=== PATIENT | female | born 1970 | race Caucasian/White ===

== ENCOUNTER 2025-02-15 16:24 | Inpatient (IN) | payer MEDICAID ==
[~2025-02-15] VITALS: Ht 167.6 cm; Wt 96.7 kg
--- NOTE | 2025-02-15 17:13 | ED.PDOC ---
History of Present Illness(SKN HPI Comments 54-year-old female with a history of hypertension, breast cancer in remission status post double mastectomy and bilateral breast augmentation brought in by family complaining of right breast pain. Patient states she had complications after both implants were inserted, so had multiple corrective surgeries. The left implant was removed, however the right implant is in place. Patient states she has had worsening pain, tenderness and asymmetry of the right breast over the past month. She was seen by her breast surgeon in [place] 2 days ago, who advised her to go to the hospital for a breast MRI to evaluate for implant rupture. Patient also notes she has had pain and swelling radiating to her right axilla, and the left breast area also seems to be developing a fluid collection with associated nipple distortion, however left side is not painful. Denies any fever, breast discoloration or discharge. At triage, patient's blood pressure was noted to be 201/118 with heart rate 104. Patient denies headache, vision changes, focal weakness, chest pain, shortness of breath or lower extremity edema. Chief Complaint: Breast pain Time Seen by MD: 17:00 History of Present Illness: Nurses Notes, Medications, Allergies Allergies: Coded Allergies: NO KNOWN ALLERGIES (Unverified , 02/15/25) Information Source: Patient Mode of Arrival: Ambulatory Severity: Moderate Timing: Months Duration: Since onset Prehospital treatment: None Location: Chest Mechanism: Spontaneous Onset Object: Other (implant) Condition of Object: None Retained Foreign Body: No Wound Type: Unknown Immunization Status of Animal: NA Tetanus: Unknown Associated Signs and Symptoms: Swelling, Pain Past Medical History PAST MEDICAL HISTORY: Cancer (Breast cancer in remission), HTN Surgical History: Hernia Repair Surgical History (Other): double mastectomy, bilateral breast augmentation, left breast implant removal, multiple bilateral breast corrective surgeries OUTSIDE INSTALLER APPRENTICE History: Denies all OUTSIDE INSTALLER APPRENTICE Hx Family History Family History: Reviewed,noncontributory to illness Social History Smoker: Non-Smoker Alcohol: Denies ETOH Use Drugs: Marijuana Lives In: Home Constitutional: denies: chills, diaphoresis, fatigue, fever, malaise, sweats, weakness, others EENTM: denies: blurred vision, double vision, ear bleeding, ear discharge, ear drainage, ear pain, ear ringing, eye pain, eye redness, hearing loss, mouth pain, mouth swelling, nasal discharge, nose bleeding, nose congestion, nose pain, photophobia, tearing, throat pain, throat swelling, voice changes, others Respiratory: denies: cough, hemoptysis, orthopnea, SOB at rest, shortness of breath, SOB with excertion, stridor, wheezing, others Cardiovascular: denies: chest pain, dizzy spells, diaphoresis, Dyspnea on e xertion, edema, irregular heart beat, left arm pain, lightheadedness, palpitations, PND, syncope, others Gastrointestinal: denies: abdomen distended, abdominal pain, blood streaked bowels, constipated, diarrhea, dysphagia, difficulty swallowing, hematemesis, melena, nausea, poor appetite, poor fluid intake, rectal bleeding, rectal pain, vomiting, others Genitourinary: denies: abnormal vagina bleeding, burning, dyspareunia, dysuria, flank pain, frequency, hematuria, incontinence, pain, , vagina discharge, urgency, others Neurological: denies: dizziness, fainting, headache, left sided numbness, left sided weakness, numbness, paresthesia, pre-existing deficit, right sided numbness, right sided weakness, seizure, speech problems, tingling, tremors, weakness, others Musculoskeletal: denies: back pain, gout, joint pain, joint swelling, muscle pain, muscle stiffness, neck pain, others Integumetry: reports: others (right breast pain/right breast swelling); denies: bruises, change in color, change in hair/nails, dryness, laceration, lesions, lumps, rash, wounds Allergic/Immunocompromised: denies: Difficulty Healing, Frequent Infections, Hives, Itching, others Hematologic/Lymphatic: denies: anemia, blood clots, easy bleeding, easy bruising, swollen glands, others Endocrine: denies: excessive hunger, excessive sweating, excessive thirst, excessive urination, flushing, intolerance to cold, intolerance to heat, unexplained weight gain, unexplained weight loss, others Psychiatric: denies: anxiety, bipolar disorder, depression, hopeless, panic disorder, schizophrenia, sleepless, suicidal, others All Other Systems: Reviewed and Negative Physical Exam General Appearance: Mild Distress HEENT: Other (Pupils and face symmetric. Moist mucous membranes.) Neck: Full Range of Motion, Normal Inspection Respiratory: Lungs Clear, No Accessory Muscle Use, No Respiratory Distress, Normal Breath Sounds Cardiovascular: No Edema, No JVD, Regular Rate/Rhythm Breast Exam: Other (Right breast diffuse soft tissue tenderness and asymmetry with palpable irregularity of the implant. Right axillary soft tissue swelling and tenderness. Left breast mastectomy with residual nontender soft tissue inferior to the mastectomy scar, and left nipple deformity without tenderness) Gastrointestinal: Non Tender, Soft Genitalia: Deferred Pelvic: Deferred Rectal: Deferred Extremities: Normal inspection, Normal range of motion, Non-tender, No pedal e eulogio Neurologic: Alert (Oriented x4), Other (Ambulatory. Appears anxious.) Cerebellar Function: NOT DONE Reflexes: NOT DONE Skin: Dry, Normal Color, Warm Lymphatic: NOT DONE Was a procedure done? Was a procedure done?: No Differential Diagnosis (INTG) Differential Diagnosis: Cellulitis, Hematoma, Other (Capsular contracture, implant rupture, among others) Differential Diagnosis: Abscess Abscess: Bacteremia X-Ray, Labs, Meds, VS Vital Signs Date Time Temp Pulse Resp B/P (MAP) Pulse Ox O2 Delivery O2 Flow Rate FiO2 02/15/25 20:06 97 20 189/109 (135) 96 02/15/25 19:33 98.1 105 18 201/118 (145) 97 98.1 02/15/25 17:44 209/107 02/15/25 16:25 98.2 104 18 197/107 (137) 98 98.2 Lab Test 02/15/25 18:14 02/15/25 16:56 Range/Units White Blood Count 8.0 4.4-10.8 10^3/uL Red Blood Count 4.78 4.0-5.20 10^6/uL Hemoglobin 14.5 12.2-16.2 g/dL Hematocrit 43.2 36.0-46.0 % Mean Corpuscular Volume 90.3 80.0-100.0 fL Mean Corpuscular Hemoglobin 30.3 28.0-32.0 pg Mean Corpuscular Hemoglobin Concent 33.6 32.0-36.0 g/dL Red Cell Distribution Width 13.1 11.8-14.3 % Platelet Count 438 140-450 10^3/uL Mean Platelet Volume 7.3 6.9-10.8 fL Neutrophils (%) (Auto) 69.6 37.0-80.0 % Lymphocytes (%) (Auto) 22.4 10.0-50.0 % Monocytes (%) (Auto) 5.6 0.0-12.0 % Eosinophils (%) (Auto) 1.5 0.0-7.0 % Basophils (%) (Auto) 0.9 0.0-2.0 % Neutrophils # (Auto) 5.6 1.6-8.6 10 ^3/uL Lymphocytes # (Auto) 1.8 0.4-5.4 10 ^3/uL Monocytes # (Auto) 0.5 0-1.3 10 ^3/uL Eosinophils # (Auto) 0.1 0-0.8 10 ^3/uL Basophils # (Auto) 0.1 0-0.2 10 ^3/uL Nucleated Red Blood Cells 0.1 % Sodium Level 142 136-145 mmol/L Potassium Level 4.3 3.5-5.1 mmol/L Chloride Level 110 H 98-107 mmol/L Carbon Dioxide Level 21 20-31 mmol/L Anion Gap 11 5-15 Blood Urea Nitrogen 15 9-23 mg/dL Creatinine 0.78 0.550-1.02 mg/dL Glomerular Filtration Rate Calc 90 >90 mL/min BUN/Creatinine Ratio 19.2 10.0-20.0 Serum Glucose 101 74-106 mg/dL Lactic Acid Level 1.0 0.4-2.0 mmol/L Calcium Level 11.1 H 8.7-10.4 mg/dL Urine Color Yellow Yellow Urine Clarity Turbid H Clear Urine pH 5.5 5.0-9.0 Urine Specific [place] 1.026 1.001-1.035 Urine Protein Negative Negative Urine Ketones Negative Negative Urine Blood Trace H Negative /uL Urine Nitrite Negative Negative Urine Bilirubin Negative Negative Urine Urobilinogen Normal Negative mg/dL Urine Leukocyte Esterase Negative Negative /uL Urine RBC 2 0 - 4 /hpf Urine Microscopic WBC 1 0-5 /HPF Urine Squamous Epithelial Cells Mod <5 /hpf Urine Bacteria Few H None Seen /hpf Urine Mucus Few None Seen Urine Glucose Normal Normal mg/dL Urine Test Negative Negative Current Medications Medications (Trade) Dose Ordered Sig/Johanny Route Start Time Stop Time Status Last Admin Hydralazine HCl (Apresoline Injection) 10 mg ONCE ONCE IV 02/15/25 17:30 02/15/25 17:31 DC 02/15/25 17:44 PROCEDURE(s): RBRST - R BREAST ULTRASOUND REASON: R breast swelling/ba ORDER NUMBER(s): [id number], ACCESSION NUMBER(s): [id number] US OF THE RIGHT BREAST INDICATION: R breast swelling/ba TECHNIQUE: All 4 quadrants, subareolar region and axillary region of the RIGHT breast were evaluated with ultrasound COMPARISON: None FINDINGS: Right breast implant is present. No solid or suspicious masses. No areas of architectural distortion. No malignant adenopathy. No dominant cysts are present. IMPRESSION: There is no sonographic evidence for malignancy. Right breast implant is present. No definite signs of implant rupture. Recommend further evaluation with bilateral diagnostic breast mammography and breast MRI to assess for integrity of implant. ACR Bi Rads Category:Category 0-"INCOMPLETE" (Needs Additional Imaging Evaluation)) X-Ray, Labs, Meds, VS Comment 54-year-old female with a history of hypertension and breast cancer status post bilateral mastectomy, reconstruction and multiple corrective surgeries complaining of right breast pain and found to be hypertensive Vitals remarkable for BP 201/118, heart rate 105 Exam remarkable for right breast diffuse soft tissue tenderness and asymmetry with palpable irregularity of the implant. Right axillary soft tissue swelling and tenderness. Left breast mastectomy with residual nontender soft tissue inferior to the mastectomy scar, and left nipple deformity without tenderness Rhythm strip independently interpreted by me: Sinus tach, rate 105, no ectopy. Right breast ultrasound IMPRESSION: There is no sonographic evidence for malignancy. Right breast implant is present. No definite signs of implant rupture. Recommend further evaluation with bilateral diagnostic breast mammography and breast MRI to assess for integrity of implant. ACR Bi Rads Category:Category 0-"INCOMPLETE" (Needs Additional Imaging Evaluat ion)) Chest x-ray one view: Pending CBC, basic metabolic panel and lactate unremarkable Patient treated with the following in the ED: Hydralazine 10 mg IV, labetalol 10 mg IV, Ativan 1 mg IV On re-evaluation after medications, patient's blood pressure was 189/109. Plan is to admit the patient for blood pressure control and breast MRI. Time of 1ST Reevaluation: 17:30 Reevaluation 1ST: Unchanged Patient Education/Counseling: Diagnosis, Treatment Family Education/Counseling: No Family Present SEPSIS Sepsis Screen Physician Orders Blood Culture (02/15/25 17:18) R Breast Ultrasound (02/15/25 17:18) Vital Signs Date Time Temp Pulse Resp B/P (MAP) Pulse Ox O2 Delivery O2 Flow Rate FiO2 02/15/25 20:06 97 20 189/109 (135) 96 02/15/25 19:33 98.1 105 18 201/118 (145) 97 98.1 02/15/25 17:44 209/107 02/15/25 16:25 98.2 104 18 197/107 (137) 98 98.2 Laboratory Tests Test 02/15/25 18:14 Lactic Acid Level 1.0 mmol/L (0.4-2.0) White Blood Count 8.0 10^3/uL (4.4-10.8) Medications Medications Dose Ordered Sig/Johanny Route Start Time Stop Time Status Last Admin Dose Admin Hydralazine HCl 10 mg ONCE ONCE IV 02/15/25 17:30 02/15/25 17:31 DC 02/15/25 17:44 Departure 1 Departure Time of Disposition: 20:09 Impression: Primary Impression: Complication of breast implant Additional Impression: Hypertensive urgency Disposition: 09 ADMITTED INPATIENT Admit to: Tele Condition: Guarded Critical Care Note Critical Care Time?: Yes (35 min-critical care time only) Critical care comment: Critical care time including multiple bedside re-evaluations, review of lab and imaging studies, and discussion of the case with the admitting provider. Patien t is high risk for hemodynamic decompensation. Stability Stability form required: No Heart Score Heart Score: Heart Score Response (Comments) Value History N/A 0 EKG N/A 0 Age N/A 0 Risk Factors N/A 0 Troponin N/A 0 Total 0 I personally scribed for DYLAN AMIN MD ([email or web address]) on 02/15/25 at 17:13. Electronically submitted by Mirta Aranda ([email or web address]). DYLAN AMIN MD Feb 15, 2025 17:13
[2025-02-15] MEDS: hydrALAZINE HCL 20 MG/ML VL IV ONE (17:44)
[2025-02-15 17:51] LABS: Urine Protein, UAD Negative (Negative)
[2025-02-15 18:43] LABS: Hematocrit 43.2 % (36.0-46.0); Hemoglobin 14.5 g/dL (12.2-16.2); Mean Corpuscular Hemoglobin 30.3 pg (28.0-32.0); Mean Corpuscular Volume 90.3 fL (80.0-100.0); Nucleated Red Blood Cells % 0.1 %; Potassium 4.3 mmol/L (3.5-5.1); Sodium 142 mmol/L (136-145)
[2025-02-15 18:44] LABS: Anion Gap 11 (5-15); Carbon Dioxide 21 mmol/L (20-31)
[2025-02-15 18:49] LABS: BUN/Creatinine Ratio 19.2 (10.0-20.0); Blood Urea Nitrogen 15 mg/dL (9-23); Glucose 101 mg/dL (74-106)
[2025-02-15 18:52] LABS: Calcium 11.1 mg/dL (8.7-10.4); Chloride 110 mmol/L (98-107)
--- NOTE | 2025-02-15 19:30 | DVH ---
US OF THE RIGHT BREAST INDICATION: R breast swelling/ba TECHNIQUE: All 4 quadrants, subareolar region and axillary region of the RIGHT breast were evaluated with ultrasound COMPARISON: None FINDINGS: Right breast implant is present. No solid or suspicious masses. No areas of architectural distortion. No malignant adenopathy. No dominant cysts are present. IMPRESSION: There is no sonographic evidence for malignancy. Right breast implant is present. No definite signs of implant rupture. Recommend further evaluation w ith bilateral diagnostic breast mammography and breast MRI to assess for integrity of implant. ACR Bi Rads Category:Category 0-"INCOMPLETE" (Needs Additional Imaging Evaluation))
[2025-02-15 20:13] VITALS: O2SAT 99
[2025-02-15] MEDS: LORazepam 2MG/ML-1ML VIAL IV ONE (20:18)
[2025-02-15] MEDS: LABETALOL HCL 20 MG/4 ML VL IV ONE (20:20)
--- NOTE | 2025-02-15 21:18 | DVH ---
CHEST RADIOGRAPH Indication: Hypertension Technique: Single frontal view of the chest was obtained Comparison: None FINDINGS: Lines and Tubes: None Lungs: No focal consolidation. Increased soft tissue density over the right chest. Most likely from a breast implant correlate with clinical findings. Pleura: No effusion. No pneumothorax. Cardiomediastinal contours: Unremarkable Bones: No acute osseous abnormality. IMPRESSION: 1. No acute cardiopulmonary disease.
[2025-02-15] MEDS ORDERED: hydrALAZINE HCL 20 MG/ML VL IV PRN (23:00)
[2025-02-15] MEDS ORDERED: DOCUSATE SOD 100 MG CAP PO PRN (23:00)
[2025-02-15] MEDS ORDERED: ONDANSETRON HCL 4 MG/2 ML VIAL IV PRN (23:00)
--- NOTE | 2025-02-15 23:50 | DVHHP2 ---
History of Present Illness Reason for Visit: Hypertensive urgency History of Present Illness The patient is a 54-year-old female with past medical history of breast cancer and hypertension who presented to [facility] ED with complaint of right breast pain. Patient states she had complications after both implants were inserted, so had multiple corrective surgeries. The left implant was removed, however the right implant is in place. Patient reports she has had worsening pain, swelling radiating to her right axilla, and the left breast area also seems to be developing fluid collection with associated nipple distortion, tenderness and asymmetry of the right breast over the past month. She was seen by her breast surgeon in [place] 2 days ago, who advised her to go to the hospital for a breast MRI to evaluate for implant rupture. Patient was seen and evaluated in the ED, laboratory data shows WBC 8.0, platelets 438, sodium 142, potassium 4.3, BUN 15, creatinine 0.78, glucose 101, calcium 11.1, lactic acid 1.0, blood pressure 209/107 trending down to 146/72, heart rate 88, temperature 98.1 F, O2 saturation 99% on air. Breast ultrasound revealing right breast implant in place, no sonographic evidence of malignancy. Please see medication orders section in the computer. On my assessment, patient denied chest pain, no headache, no dizziness, no diaphoresis, no shortness of breath, nausea, vomiting, no fever, no chills. Patient was admitted for further evaluation and medical management. Past Medical History Cancer (Breast cancer in remission), HTN Past Surgical History Hernia Repair, Double mastectomy, bilateral breast augmentation, left breast implant removal, multiple bilateral breast corrective surgeries Family History Reviewed, noncontributory to the management of this case. Past Social History The patient lives at home, denies smoking or alcohol use, uses marijuana. Review of Systems Constitutional: No: Fever, Chills, Sweats, Weakness, Malaise, Other Eyes: No: Pain, Vision change, Conjunctivae inflammation, Eyelid inflammation, Other, Redness ENT: No: Ear pain, Ear discharge, Nose pain, Nose discharge, Nose congestion, M outh pain, Mouth swelling, Throat pain, Throat swelling, Other Respiratory: No: Cough, Dry, Shortness of breath, SOB with excertion, Wheezing, Hemoptysis, Pleuritic Pain, Sputum, Wheezing, Other Cardiovascular: No: Chest Pain, Palpitations, Orthopnea, Paroxysmal Noc. Dyspnea, Edema, Lt Headedness, Other Gastrointestinal: No: Nausea, Vomiting, Abdominal Pain, Diarrhea, Constipation, Melena, Hematochezia, Other Genitourinary: No Dysuria, No Frequency, No Incontinence, No Hematuria, No Retention, No Other Musculoskeletal: other (right breast pain/right breast swelling); No: neck pain, shoulder pain, arm pain, back pain, hand pain, leg pain, foot pain Skin: No: Rash, Lesions, Jaundice, Bruising, Other Neurological: No: Weakness, Numbness, Incoordination, Change in speech, Confusion, Seizures, Other Allergies: Coded Allergies: NO KNOWN ALLERGIES (Unverified , 02/15/25) Medications Current Medications Medications Dose Ordered Sig/Johanny Route Start Time Stop Time Status Last Admin Dose Admin Hydralazine HCl 10 mg Q6HP PRN IV 02/15/25 23:00 Lorazepam 0.5 mg Q8HP PRN IV 02/15/25 23:00 Ceftriaxone Sodium 50 ml @ 100 mls/hr DAILY@09 IV 02/16/25 23:00 Metoprolol Tartrate 50 mg BID PO 02/16/25 10:00 Sodium Chloride 10 ml Q8HR IV 02/16/25 06:00 Acetaminophen/ Hydrocodone Bitart 1 tab Q4HP PRN PO 02/15/25 23:00 Ondansetron HCl 4 mg Q4HP PRN IV 02/15/25 23:00 Docusate Sodium 100 mg BIDPRN PRN PO 02/15/25 23:00 Acetaminophen 650 mg Q6HP PRN PO 02/15/25 23:00 Exam Vital Signs Vital Signs Date Time Temp Pulse Resp B/P (MAP) Pulse Ox O2 Delivery O2 Flow Rate FiO2 02/15/25 22:53 98.2 94 18 148/109 (122) 97 98.2 02/15/25 20:13 Room Air* 0 21 General Appearance: Alert, Oriented X3, Cooperative, No acute distress HEENT: Atraumatic, PERRLA, EOMI, Mucous membr. moist/pink Respiratory: Normal air movement Cardiovascular: Regular rate, Normal S1, Normal S2, No murmurs Abdominal: Normal bowel sounds, Soft, No tenderness, No hepatospenomegaly, No masses Extremities: No clubbing, No cyanosis, No edema, Normal pulses, No tenderness/swelling Skin: No rashes, No significant lesion Neuro: Normal gait, Normal speech, Strength at 5/5 X4 ext, Normal tone, Sensation intact, Cranial nerves 3-12 NL, Reflexes 2+ Psych/Mental Status: Mental status NL, Mood NL Labs/Xrays Labs Test 02/15/25 18:14 02/15/25 16:56 Range/Units White Blood Count 8.0 4.4-10.8 10^3/uL Red Blood Count 4.78 4.0-5.20 10^6/uL Hemoglobin 14.5 12.2-16.2 g/dL Hematocrit 43.2 36.0-46.0 % Mean Corpuscular Volume 90.3 80.0-100.0 fL Mean Corpuscular Hemoglobin 30.3 28.0-32.0 pg Mean Corpuscular Hemoglobin Concent 33.6 32.0-36.0 g/dL Red Cell Distribution Width 13.1 11.8-14.3 % Platelet Count 438 140-450 10^3/uL Mean Platelet Volume 7.3 6.9-10.8 fL Neutrophils (%) (Auto) 69.6 37.0-80.0 % Lymphocytes (%) (Auto) 22.4 10.0-50.0 % Monocytes (%) (Auto) 5.6 0.0-12.0 % Eosinophils (%) (Auto) 1.5 0.0-7.0 % Basophils (%) (Auto) 0.9 0.0-2.0 % Neutrophils # (Auto) 5.6 1.6-8.6 10 ^3/uL Lymphocytes # (Auto) 1.8 0.4-5.4 10 ^3/uL Monocytes # (Auto) 0.5 0-1.3 10 ^3/uL Eosinophils # (Auto) 0.1 0-0.8 10 ^3/uL Basophils # (Auto) 0.1 0-0.2 10 ^3/uL Nucleated Red Blood Cells 0.1 % Sodium Level 142 136-145 mmol/L Potassium Level 4.3 3.5-5.1 mmol/L Chloride Level 110 H 98-107 mmol/L Carbon Dioxide Level 21 20-31 mmol/L Anion Gap 11 5-15 Blood Urea Nitrogen 15 9-23 mg/dL Creatinine 0.78 0.550-1.02 mg/dL Glomerular Filtration Rate Calc 90 >90 mL/min BUN/Creatinine Ratio 19.2 10.0-20.0 Serum Glucose 101 74-106 mg/dL Lactic Acid Level 1.0 0.4-2.0 mmol/L Calcium Level 11.1 H 8.7-10.4 mg/dL Urine Color Yellow Yellow Urine Clarity Turbid H Clear Urine pH 5.5 5.0-9.0 Urine Specific [place] 1.026 1.001-1.035 Urine Protein Negative Negative Urine Ketones Negative Negative Urine Blood Trace H Negative /uL Urine Nitrite Negative Negative Urine Bilirubin Negative Negative Urine Urobilinogen Normal Negative mg/dL Urine Leukocyte Esterase Negative Negative /uL Urine RBC 2 0 - 4 /hpf Urine Microscopic WBC 1 0-5 /HPF Urine Squamous Epithelial Cells Mod <5 /hpf Urine Bacteria Few H None Seen /hpf Urine Mucus Few None Seen Urine Glucose Normal Normal mg/dL Urine Test Negative Negative PATIENT: LATOYA CHANEY ACCT: [id number] UNIT: [id number] : 1970 LOC: ER ROOM / BED: / AGE / SEX: 54 / F ADM STATUS: REG ER SERVICE [id number] ORDERING PHYSICIAN: DYLAN AMIN MD PROCEDURE(s): RBRST - R BREAST ULTRASOUND REASON: R breast swelling/ba ORDER NUMBER(s): [id number], ACCESSION NUMBER(s): [id number] US OF THE RIGHT BREAST INDICATION: R breast swelling/ba TECHNIQUE: All 4 quadrants, subareolar region and axillary region of the RIGHT breast were evaluated with ultrasound COMPARISON: None FINDINGS: Right breast implant is present. No solid or suspicious masses. No areas of architectural distortion. No malignant adenopathy. No dominant cysts are present. IMPRESSION: There is no sonographic evidence for malignancy. Right breast implant is present. No definite signs of implant rupture. Recommend further evaluation with bilateral diagnostic breast mammography and breast MRI to assess for integrity of implant. ACR Bi Rads Category:Category 0-"INCOMPLETE" (Needs Additional Imaging Evaluation)) ORDERING PHYSICIAN: DYLAN AMIN MD PROCEDURE(s): CXR1 - CHEST XRAY 1 VIEW REASON: Hypertension ORDER NUMBER(s): [id number], ACCESSION NUMBER(s): [id number] CHEST RADIOGRAPH Indication: Hypertension Technique: Single frontal view of the chest was obtained Comparison: None FINDINGS: Lines and Tubes: None Lungs: No focal consolidation. Increased soft tissue density over the right chest. Most likely from a breast implant correlate with clinical findings. Pleura: No effusion. No pneumothorax. Cardiomediastinal contours: Unremarkable Bones: No acute osseous abnormality. IMPRESSION: 1. No acute cardiopulmonary disease. SEPSIS Sepsis Screen Time Sepsis recognized/suspect: 2011 Recent Procedure: No On Antibiotic Therapy: No Respiratory Rate >20: No Heart Rate >90: Yes (97bpm) Temp<36 C (96.8 F) or >38.3 C: No SBP <90 or MAP <65 mmHG: No New Acute Mental Status Change: No Is the patient on CPAP, BIPAP,: No Physician Orders Blood Culture (02/15/25 17:18) R Breast Ultrasound (02/15/25 17:18) Electrocardigram (02/15/25 20:22) Chest Xray 1 View (02/15/25 20:25) Hydralazine Injection (Apresoline Inject (02/15/25 23:00) Lorazepam 2mg/Ml Inj (Ativan Inj) (02/15/25 23:00) Ceftriaxone 1gm/50ml D5w (Rocephin) (02/16/25 23:00) Metoprolol Tartrate Tablet (Lopressor Ta (02/16/25 10:00) Allergies (02/15/25 22:50) Code Status (02/15/25 22:50) Sodium Chloride Lock (Saline Lock Ns) (02/16/25 06:00) Oxygen Per Hour (02/15/25 22:50) Hydrocodone-Acet 5/325mg Tab ([place] 5/32 (02/15/25 23:00) Ondansetron Hcl (Zofran) (02/15/25 23:00) Docusate Sodium Capsule (Colace Capsule) (02/15/25 23:00) Complete Blood Count (02/16/25 04:00) Comprehensive Metabolic Panel (02/16/25 04:00) Cardiac Diet-2gna,Lofat,Lochol (02/16/25 Breakfast) Condition: Serious (02/15/25 22:50) Acetaminophen Tablet (Tylenol Tablet) (02/15/25 23:00) Bedrest With Bathroom Privileg (02/15/25 22:50) Sequential Compression Device (02/15/25 ) Vital Signs Date Time Temp Pulse Resp B/P (MAP) Pulse Ox O2 Delivery O2 Flow Rate FiO2 02/15/25 22:53 98.2 94 18 148/109 (122) 97 98.2 02/15/25 21:09 88 181/104 (129) 02/15/25 21:09 88 181/104 02/15/25 20:20 99 189/109 02/15/25 20:13 99 Room Air* 0 21 02/15/25 20:06 97 20 189/109 (135) 96 02/15/25 19:33 98.1 105 18 201/118 (145) 97 98.1 02/15/25 17:44 209/107 02/15/25 16:25 98.2 104 18 197/107 (137) 98 98.2 Laboratory Tests Test 02/15/25 18:14 Lactic Acid Level 1.0 mmol/L (0.4-2.0) White Blood Count 8.0 10^3/uL (4.4-10.8) Medications Medications Dose Ordered Sig/Johanny Route Start Time Stop Time Status Last Admin Dose Admin Hydralazine HCl 10 mg ONCE ONCE IV 02/15/25 17:30 02/15/25 17:31 DC 02/15/25 17:44 10 MG Labetalol HCl 10 mg ONCE ONCE IV 02/15/25 20:15 02/15/25 20:16 DC 02/15/25 20:20 10 MG Lorazepam 1 mg ONCE ONCE IV 02/15/25 20:15 02/15/25 20:16 DC 02/15/25 20:18 1 MG Assessment/Plan Assessment/Plan Complication of breast implant Hypertensive urgency Plan 1. Admit to telemetry unit 2. Breathing treatment 3. Pain control management 4. Management of fluids and electrolytes 5. Consultation for hospitalist 6. Diagnostic tests breast ultrasound 7. DVT prophylaxis on SCDs 8. Repeat labs CBC, CMP in a.m. 9. Continue with current medical management 10. Treatment plan discussed with patient and RN. Patient verbalized understanding. Plan discussed with: Patient, Other (RN) My Orders Orders - MARIAMA SILVA DNP Procedure Category Date Status Time Hydralazine Injection PHA 02/15/25 In Process (Apresoline Inject 23:00 Lorazepam 2mg/Ml Inj PHA 02/15/25 In Process (Ativan Inj) 23:00 Ceftriaxone 1gm/50ml PHA 02/16/25 In Process D5w (Rocephin) 23:00 Metoprolol Tartrate PHA 02/16/25 In Process Tablet (Lopressor Ta 10:00 Allergies LISA 02/15/25 In Process 22:50 Code Status CODE 02/15/25 Transmitted 22:50 Sodium Chloride Lock PHA 02/16/25 In Process (Saline Lock Ns) 06:00 Oxygen Per Hour RT 02/15/25 Transmitted 22:50 Hydrocodone-Acet PHA 02/15/25 In Process 5/325mg Tab ([place] 23:00 Ondansetron Hcl PHA 02/15/25 In Process (Zofran) 23:00 Docusate Sodium PHA 02/15/25 In Process Capsule (Colace 23:00 Complete Blood Count LAB 02/16/25 Verified 04:00 Comprehensive LAB 02/16/25 Verified Metabolic Panel 04:00 Cardiac DIET 02/16/25 Transmitted Diet-2gna,Lofat,Lochol Breakfast Condition: Serious LISA 02/15/25 In Process 22:50 Acetaminophen Tablet PHA 02/15/25 In Process (Tylenol Tablet) 23:00 Bedrest With Bathroom LISA 02/15/25 In Process Privileg 22:50 Sequential LISA 02/15/25 In Process Compression Device Problem List: (1) Complication of breast implant (2) Hypertensive urgency Date of Service: Feb 15, 2025 Billing Provider: MARIAMA SILVA DNP Common Visit Codes: 58445-[id number] INP/OBS CARE (HIGH) MARIAMA SILVA DNP Feb 15, 2025 23:50
[2025-02-16] VITALS (8 sets, daily range): BP systolic 131–179; BP diastolic 65–87; PULSE 65–92; RESP 18–24; TEMP 97.3–98.6; O2SAT 96–100
[2025-02-16] MEDS ORDERED: NITROGLYCERIN 0.4 MG SL TAB SL PRN
[2025-02-16] MEDS ORDERED: MORPHINE SULFATE INJ 2 MG/ml SYRG IV PRN
[2025-02-16] MEDS: cefTRIAXone 1GM/50ML D5W 50 ML IV ONE (00:30)
[2025-02-16] MEDS: ACETAMINOPHEN 325 MG TAB PO PRN (00:47)
[2025-02-16 04:12] LABS: Hematocrit 41.4 % (36.0-46.0); Hemoglobin 14.0 g/dL (12.2-16.2); Mean Corpuscular Hemoglobin 31.2 pg (28.0-32.0); Mean Corpuscular Volume 92.3 fL (80.0-100.0); Nucleated Red Blood Cells % 0.2 %
[2025-02-16 04:34] LABS: Alanine Aminotransferase 14 U/L (7-40); Albumin 4.6 g/dL (3.2-4.8); Alkaline Phosphatase 109 U/L (46-116); Anion Gap 11 (5-15); BUN/Creatinine Ratio 13.4 (10.0-20.0); Blood Urea Nitrogen 13 mg/dL (9-23); Calcium 9.5 mg/dL (8.7-10.4); Carbon Dioxide 20 mmol/L (20-31); Chloride 109 mmol/L (98-107); Glucose 100 mg/dL (74-106); Potassium 3.7 mmol/L (3.5-5.1); Sodium 140 mmol/L (136-145); Total Protein 7.2 g/dL (5.7-8.2)
[2025-02-16 04:35] LABS: Bilirubin, Total 0.2 mg/dL (0.2-1.0)
[2025-02-16] MEDS: SODIUM CHLOR 0.9% PF (SALINE LOCK) 10ML VIAL/SYR IV SCH (06:00)
[2025-02-16] MEDS: METOPROLOL TARTRATE 50 MG TAB PO SCH (09:18)
[2025-02-16] MEDS: LORazepam 2MG/ML-1ML VIAL IV PRN (09:50)
[2025-02-16] MEDS: HYDROcodone-ACET 5/325MG TAB PO PRN (11:35)
--- NOTE | 2025-02-16 12:26 | DVH ---
INDICATION: Intermittent pervaginal bleeding TECHNIQUE: Multiple real-time grayscale transabdominal sonographic images along with color and duplex Doppler of the uterus and ovaries were obtained. COMPARISON: None FINDINGS: The uterus measures 7.1 x 4.3 x 5.3 cm. The endometrial stripe measures 1.2 cm. There is a hypoechoic masslike area in the lower uterine segment measuring 1.2 cm. The right ovary is not well visualized due to obscuration from bowel gas. The left ovary measures 2.2 x 3.6 x 3.0 cm. IMPRESSION: Hypoechoic area in the lower uterine segment may represent a fibroid. Thickening of the endometrium m easuring 1.2 cm in a postmenopausal patient with abnormal uterine bleeding. However, recommend correl ation with endometrial tissue sampling.
--- NOTE | 2025-02-16 13:53 | DVH ---
Procedure: CT CHEST WITHOUT CONTRAST Reason for study/Clinical History: Breast implant leakage. Thank You! Comparison Study: Ultrasound dated 02/15/2025 TECHNIQUE: Multidetector CT of the chest was performed from the lung apices to the upper abdomen with out the use of intravenous contract. Axial, coronal and sagittal multiplanar reformats were performed . Radiation Dose Information: CT Dose: CTDI volume is 9.21 mGy. Dose-length product is 312.81 mGy*cm The dose indicators for CT are the volume Computed Tomography (CT) Dose Index (CTDIvol) and the Dose Length Product (DLP), and are measured in units of mGy and mGy-cm, respectively. These indicators are not patient dose, but values generated from the CT scanner acquisition factors. The report includes radiation exposure data for exposures received during this examination. FINDINGS: Lower neck: Unremarkable. Lungs: No focal consolidation. No suspicious pulmonary nodule. Heart/Vascular Structures: Normal heart size. No pericardial effusion. Lymph Nodes: No adenopathy Pleura: No pleural effusion or significant pneumothorax. Musculoskeletal: No acute osseous abnormality. Mild multilevel degenerative changes of the spine. Soft tissues: Left mastectomy. Right breast implant. Upper abdomen: Limited portions of the upper abdomen are unremarkable. IMPRESSION: No acute intrathoracic abnormality. No definite CT findings of right breast implant rupture. Breast MRI (implant protocol) is recommended to assess for true integrity of implant.
[2025-02-16] MEDS: LOSARTAN POTASSIUM 50 MG TAB PO ONE (16:42)
--- NOTE | 2025-02-16 16:45 | DVHPNRES ---
Progress Note Date Seen: Feb 16, 2025 Resident Creating Document: ALEKSEY KO RESIDENT Has the PT tested + for MRSA If YES, has PT been informed?: No Medical Necessity Reason Pt with a Central, PICC or Fol: No Subjective Review of Systems Patient is a 54-year-old female with prior medical history of breast cancer ER+ treated in 2019, hypertension (noncompliant with treatment), anxiety, depression, and polysubstance use who presented to the ED with complaint of right breast pain. She states that she has had multiple complications with her breast implants since reconstructive surgery, leaning to the left implant being removed. States that for the last 2 weeks she has had worsening swelling and pain she describes as sharp with an intensity of 6/10 that radiates to her axilla. Additionally, states that she can feel fluid when she palpates her right breast. Per patient, there has also been distortion of the left breast. She reached out to her breast surgeon, Dr. Davis, who told her to go to the ED imaging studies due to suspicion of breast implant rupture. She denies fever, chills, and skin changes. On evaluation in the ED, was found to have tenderness on palpation of her right breast. Labs show WBC 8, hemoglobin 14, hematocrit 41.4, platelets 426, BUN 42, potassium 4.3, BUN 15, creatinine 0.78, glucose 101, and lactic acid 1. Breast ultrasound no sonographic evidence for malignancy. right breast implant present. No definite signs of implant rupture. Chest x-ray shows no acute cardiopulmonary disease. The ED, patient's blood pressure was 209/107. She states that during this time she had a headache, but denies chest pain, palpitations, shortness of breath. Patient was admitted for further management of blood pressure and workup for possible implant rupture. Surgical: Bilateral mastectomy with reconstruction, Hernia repair Family: HTN, DM, Alcoholism, Breast Cancer, and Colon cancer Social: Daily marijuana use, history of amphetamine use (stopped 4 months ago), heavy alcohol use. Currently living with her mother Rosio after moving in an emergent manner from [place]. Patient seen at bedside. She states that she feels well refers right breast pain, currently denies headache, palpitations, and shortness of breath. CT Chest was no acute thoracic abnormality, no definite CT findings of right breast implant rupture. Blood pressure readings are still slightly elevated, but trending down. Labs AST 18, ALT 14, ALP 109, sodium 140, potassium 3.7, creatinine 0.97. Currently pending social service consult and UDS. Review of systems: Constitutional: Denies weight loss, fever and chills. HEENT: Denies changes in vision and hearing. Respiratory: Denies shortness of breath and cough Cardiovascular: Refers chest discomfort due to implant, denies palpitations. GI: Denies abdominal distention, abdominal pain, diarrhea : Denies dysuria and urinary frequency. Musculoskeletal: Denies myalgias and joint pain Skin: Denies rash and pruritus. Neurological: denies dizziness headache vision or hearing problems Objective vital signs Vital Sign Date Time Temp Pulse Resp B/P (MAP) Pulse Ox O2 Delivery O2 Flow Rate FiO2 02/16/25 13:20 98.4 65 18 179/80 (113) 98 98.4 02/16/25 08:00 Room Air* 0 21 medications Current Medications Medications Dose Ordered Sig/Johanny Route Start Time Stop Time Status Last Admin Dose Admin Hydralazine HCl 10 mg Q6HP PRN IV 02/15/25 23:00 Lorazepam 0.5 mg Q8HP PRN IV 02/15/25 23:00 02/16/25 09:50 0.5 MG Ceftriaxone Sodium 50 ml @ 100 mls/hr DAILY@09 IV 02/16/25 23:00 Sodium Chloride 10 ml Q8HR IV 02/16/25 06:00 02/16/25 14:20 10 ML Acetaminophen/ Hydrocodone Bitart 1 tab Q4HP PRN PO 02/15/25 23:00 02/16/25 11:35 1 TAB Ondansetron HCl 4 mg Q4HP PRN IV 02/15/25 23:00 Docusate Sodium 100 mg BIDPRN PRN PO 02/15/25 23:00 Acetaminophen 650 mg Q6HP PRN PO 02/15/25 23:00 02/16/25 00:47 650 MG Nitroglycerin 0.4 mg Q5MINP PRN SL 02/16/25 00:00 Morphine Sulfate 2 mg Q30M PRN IV 02/16/25 00:00 Amlodipine Besylate 10 mg DAILY PO 02/16/25 15:30 Losartan Potassium 50 mg DAILY PO 02/17/25 10:00 Examination General: The patient alert and oriented in person place and time. Patient following commands HEENT: Normocephalic a, atraumatic, moist mucous membrane Respiratory/pulmonary: Clear lungs bilaterally, vesicular murmurs present in almost all lung watts, no associated crackles or wheezes. Chest: Endodontic Assistant was patient's nurse during breasts exam. Right breast tender to palpation, liquid palpated in lower right quadrant, no redness nor signs of cellulitis Abdomen: Abdomen nondistended, there is no pain to palpation in any of the abdominal quadrants, no palpable masses. Extremities: there is no peripheral edema present at the lower extremities. Peripheral pulses 3+ radial right, 3+ radials soft. 3+ dorsalis pedis right. 3+ dorsalis pedis left Skin: No rashes or pruritus, there is no sacral edema present at this time. Neurological: Intact cranial nerves with no focal neurologic deficits laboratory and microbiology Laboratory Tests 02/16/25 03:14 Test 02/16/25 03:14 Range/Units Serum Glucose 100 74-106 mg/dL Labs and/or images reviewed: Labs reviewed by me, Image(s) reviewed by me Problem List/Assessment/Plan Problem List/Assessment/Plan Hypertensive Urgency -Hypertension, non complaint with treatment --Metoprolol 50 mg BID PO, discontinued --Hydralazine 10 mg IV --Amlodipine 10 mg increased from 5 mg --Losartan 50 mg PO started Acute Chest Pain, Likely due to breast implant -continue pain management as needed Possible breast implant rupture; no signs/symptoms of infection -Chest x-ray: No signs of acute cardiopulmonary disease -Breast ultrasound: No evidence of malignancy. Right breast implant present with no definite sign of rupture. Recommend MRI; can not be done this facility. So CT was done -Chest CT: No acute intrathoracic abnormality. No definite sign of implant rupture. Recommend B/L MRI. Depression Anxiety -Ativan 0.5 mg History of breast cancer in remission Polysubstance use disorder -Patient counseled on cessation of marijuana and alcohol use for 22 minutes -Pending UDS Patient is here for further blood pressure control and is pending consult with Social Service. Case discussed with Dr. Orozco Goals of care discussed with the patient of for 20 minutes. FULL CODE. Plan discussed with: Patient, Other Addendum Addendum Addendum I was physically present for the merchant portions of the service provided to patient by THE RESIDENT. I have reviewed the documentation, discussed the case with resident and agree with the resident's documentation except as noted. Also the patient's clinical case was discussed with the patient's nurse. This medical document was created using an electronic medical record system with computerized dictation system. Although this document has been carefully reviewed, there might still be some phonetic and typographical errors. These areas are purely typographical due to imperfections of the software programs, and do not reflect any compromise in the patient's medical care. Late signature. Date of Service: Feb 16, 2025 Billing Provider: VLAD OROZCO MD Common Visit Codes: [id number] INP/OBS CARE(HIGH) Secondary Visit Codes: [id number] CHNG SMOKING >10MIN (Counseled for 22 minutes on marijuana and alcohol use cessation and to never return to methamphetamine use), [id number] CARE PLAN 30 MINUTES (20 minutes) ALEKSEY KO RESIDENT Feb 16, 2025 16:45 VLAD OROZCO MD Feb 17, 2025 15:22
[2025-02-16] MEDS: cefTRIAXone 1GM/50ML D5W 50 ML IV SCH (23:15)
[2025-02-17 05:00] VITALS: BP 158/94; PULSE 69; RESP 18; TEMP 97.9; O2SAT 97
[2025-02-17 06:58] LABS: Potassium 4.2 mmol/L (3.5-5.1); Sodium 140 mmol/L (136-145)
[2025-02-17 06:59] LABS: Anion Gap 9 (5-15); Calcium 10.0 mg/dL (8.7-10.4); Carbon Dioxide 21 mmol/L (20-31)
[2025-02-17 07:04] LABS: BUN/Creatinine Ratio 22.1 (10.0-20.0); Blood Urea Nitrogen 15 mg/dL (9-23); Glucose 99 mg/dL (74-106)
[2025-02-17 07:11] LABS: Chloride 110 mmol/L (98-107)
[2025-02-17 07:22] LABS: Hematocrit 42.1 % (36.0-46.0); Hemoglobin 14.2 g/dL (12.2-16.2); Mean Corpuscular Hemoglobin 30.5 pg (28.0-32.0); Mean Corpuscular Volume 90.5 fL (80.0-100.0); Nucleated Red Blood Cells % 0.2 %
[2025-02-17 08:00] VITALS: PULSE 65; PULSE 69; RESP 16; O2SAT 98
[2025-02-17 08:30] VITALS: BP 155/75; PULSE 69; RESP 16; TEMP 98; O2SAT 98
[2025-02-17] MEDS: LOSARTAN POTASSIUM 50 MG TAB PO SCH (09:53)
[2025-02-17 12:30] VITALS: BP 141/77; PULSE 66; RESP 16; TEMP 97.5; O2SAT 97
[2025-02-17] MEDS ORDERED: LOSA-534 PO (15:19)
[2025-02-17] MEDS ORDERED: AML5T PO (15:19)
--- NOTE | 2025-02-17 16:56 | DVHDSRES ---
Discharge Summary Date of Admission Resident Creating Document: ANTON RAYMOND RESIDENT Feb 15, 2025 at 23:49 Date of Discharge: Feb 17, 2025 Admitting Diagnosis Hypertensive Urgency Labs/Diagnostic Data: Laboratory Results Test 02/17/25 06:04 02/16/25 12:58 02/16/25 03:14 02/15/25 18:14 White Blood Count 6.7 10^3/uL (4.4-10.8) Red Blood Count 4.66 10^6/uL (4.0-5.20) Hemoglobin 14.2 g/dL (12.2-16.2) Hematocrit 42.1 % (36.0-46.0) Mean Corpuscular Volume 90.5 fL (80.0-100.0) Mean Corpuscular Hemoglobin 30.5 pg (28.0-32.0) Mean Corpuscular Hemoglobin Concent 33.8 g/dL (32.0-36.0) Red Cell Distribution Width 13.0 % (11.8-14.3) Platelet Count 393 10^3/uL (140-450) Mean Platelet Volume 7.8 fL (6.9-10.8) Neutrophils (%) (Auto) 63.1 % (37.0-80.0) Lymphocytes (%) (Auto) 24.0 % (10.0-50.0) Monocytes (%) (Auto) 7.0 % (0.0-12.0) Eosinophils (%) (Auto) 5.1 % (0.0-7.0) Basophils (%) (Auto) 0.8 % (0.0-2.0) Neutrophils # (Auto) 4.3 10 ^3/uL (1.6-8.6) Lymphocytes # (Auto) 1.6 10 ^3/uL (0.4-5.4) Monocytes # (Auto) 0.5 10 ^3/uL (0-1.3) Eosinophils # (Auto) 0.3 10 ^3/uL (0-0.8) Basophils # (Auto) 0.1 10 ^3/uL (0-0.2) Nucleated Red Blood Cells 0.2 % Sodium Level 140 mmol/L (136-145) Potassium Level 4.2 mmol/L (3.5-5.1) Chloride Level 110 mmol/L (98-107) Carbon Dioxide Level 21 mmol/L (20-31) Anion Gap 9 (5-15) Blood Urea Nitrogen 15 mg/dL (9-23) Creatinine 0.68 mg/dL (0.550-1.02) Glomerular Filtration Rate Calc 103 mL/min (>90) BUN/Creatinine Ratio 22.1 (10.0-20.0) Serum Glucose 99 mg/dL (74-106) Calcium Level 10.0 mg/dL (8.7-10.4) CA 15-3 Antigen 10.4 U/mL (0.0-25.0) CA 125 Antigen 9.0 U/mL (0.0-38.1) Total Bilirubin 0.2 mg/dL (0.2-1.0) Aspartate Amino Transferase (AST) 18 U/L (13-40) Alanine Aminotransferase (ALT) 14 U/L (7-40) Alkaline Phosphatase 109 U/L (46-116) Total Protein 7.2 g/dL (5.7-8.2) Albumin 4.6 g/dL (3.2-4.8) Lactic Acid Level 1.0 mmol/L (0.4-2.0) Test 02/15/25 16:56 Urine Color Yellow (Yellow) Urine Clarity Turbid (Clear) Urine pH 5.5 (5.0-9.0) Urine Specific Carrier 1.026 (1.001-1.035) Urine Protein Negative (Negative) Urine Ketones Negative (Negative) Urine Blood Trace /uL (Negative) Urine Nitrite Negative (Negative) Urine Bilirubin Negative (Negative) Urine Urobilinogen Normal mg/dL (Negative) Urine Leukocyte Esterase Negative /uL (Negative) Urine RBC 2 /hpf (0 - 4) Urine Microscopic WBC 1 /HPF (0-5) Urine Squamous Epithelial Cells Mod /hpf (<5) Urine Bacteria Few /hpf (None Seen) Urine Mucus Few (None Seen) Urine Glucose Normal mg/dL (Normal) Urine Test Negative (Negative) Other Laboratory Tests 02/17/25 06:04 Brief Hx & Hospital Course: Patient is a 54-year-old female with prior medical history of breast cancer ER+ treated in 2019, hypertension (noncompliant with treatment), anxiety, depression, and polysubstance use who presented to the ED with complaint of right breast pain. She states that she has had multiple complications with her breast implants since reconstructive surgery, leaning to the left implant being removed. States that for the last 2 weeks she has had worsening swelling and pain she describes as sharp with an intensity of 6/10 that radiates to her axilla. Additionally, states that she can feel fluid when she palpates her right breast. Per patient, there has also been distortion of the left breast. She reached out to her breast surgeon, Dr. Davis, who told her to go to the ED imaging studies due to suspicion of breast implant rupture. She denies fever, chills, and skin changes. On evaluation in the ED, was found to have tenderness on palpation of her right breast. Labs show WBC 8, hemoglobin 14, hematocrit 41.4, platelets 426, BUN 42, potassium 4.3, BUN 15, creatinine 0.78, glucose 101, and lactic acid 1. Breast ultrasound no sonographic evidence for malignancy. right breast implant present. No definite signs of implant rupture. Chest x-ray shows no acute cardiopulmonary disease. The ED, patient's blood pressure was 209/107. She states that during this time she had a headache, but denies chest pain, palpitations, shortness of breath. Patient was admitted for further management of blood pressure and workup for possible implant rupture. Brief Hospital course: Patient came to the ED with hypertensive urgency, as she is noncompliant with her home medications, for this metoprolol 50 mg b.i.d. p.o. was given and discontinued. Hydralazine 10 mg IV was given, amlodipine 10 mg was increased from 5 mg, losartan 50 mg p.o. was started. The patient had acute chest pain likely due to breast implant and for this pain management was continued as needed. Possible breast implant rupture but no signs of any infection the chest x-ray showed no signs of acute cardiopulmonary disease, breast ultrasound showed no evidence of malignancy and right breast implant present with no definite signs of rupture, Was recommended MRI but can not be done in this facility so was recommended to follow-up outpatient. Chest CT showed no acute intrathoracic abnormality, no definite sign of implant rupture, recommended bilateral MRI. Anxiety and depression patient was counseled to continue home medications. For her polysubstance use disorder patient was counseled on cessation of marijuana and alcohol use for 20 minutes. Patient was counseled to follow-up with her breast surgeon Dr. Davis, and to follow-up with the discharge Clinic on Wednesday a.m. Patient is be blood pressure improved at discharge she will continue amlodipine and losartan as home medication. Patient communicated understanding and was stable for discharge. General: The patient alert and oriented in person place and time. Patient following commands HEENT: Normocephalic a, atraumatic, moist mucous membrane Respiratory/pulmonary: Clear lungs bilaterally, vesicular murmurs present in almost all lung watts, no associated crackles or wheezes. Chest: Jinrikisha Driver was patient's nurse during breasts exam. Right breast tender to palpation, liquid palpated in lower right quadrant, no redness nor signs of cellulitis Abdomen: Abdomen nondistended, there is no pain to palpation in any of the abdominal quadrants, no palpable masses. Extremities: there is no peripheral edema present at the lower extremities. Peripheral pulses 3+ radial right, 3+ radials soft. 3+ dorsalis pedis right. 3+ dorsalis pedis left Skin: No rashes or pruritus, there is no sacral edema present at this time. Neurological: Intact cranial nerves with no focal neurologic deficits Operations or Procedures Procedure: CT CHEST WITHOUT CONTRAST Reason for study/Clinical History: Breast implant leakage. Thank You! Comparison Study: Ultrasound dated 02/15/2025 TECHNIQUE: Multidetector CT of the chest was performed from the lung apices to the upper abdomen without the use of intravenous contract. Axial, coronal and sagittal multiplanar reformats were performed. Radiation Dose Information: CT Dose: CTDI volume is 9.21 mGy. Dose-length product is 312.81 mGy*cm The dose indicators for CT are the volume Computed Tomography (CT) Dose Index (CTDIvol) and the Dose Length Product (DLP), and are measured in units of mGy and mGy-cm, respectively. These indicators are not patient dose, but values generated from the CT scanner acquisition factors. The report includes radiation exposure data for exposures received during this examination. FINDINGS: Lower neck: Unremarkable. Lungs: No focal consolidation. No suspicious pulmonary nodule. Heart/Vascular Structures: Normal heart size. No pericardial effusion. Lymph Nodes: No adenopathy Pleura: No pleural effusion or significant pneumothorax. Musculoskeletal: No acute osseous abnormality. Mild multilevel degenerative changes of the spine. Soft tissues: Left mastectomy. Right breast implant. Upper abdomen: Limited portions of the upper abdomen are unremarkable. IMPRESSION: No acute intrathoracic abnormality. No definite CT findings of right breast implant rupture. Breast MRI (implant protocol) is recommended to assess for true integrity of implant. INDICATION: Intermittent pervaginal bleeding TECHNIQUE: Multiple real-time grayscale transabdominal sonographic images along with color and duplex Doppler of the uterus and ovaries were obtained. COMPARISON: None FINDINGS: The uterus measures 7.1 x 4.3 x 5.3 cm. The endometrial stripe measures 1.2 cm. There is a hypoechoic masslike area in the lower uterine segment measuring 1.2 cm. The right ovary is not well visualized due to obscuration from bowel gas. The left ovary measures 2.2 x 3.6 x 3.0 cm. IMPRESSION: Hypoechoic area in the lower uterine segment may represent a fibroid. Thickening of the endometrium measuring 1.2 cm in a postmenopausal patient with abnormal uterine bleeding. However, recommend correlation with endometrial tissue sampling. - CHEST RADIOGRAPH Indication: Hypertension Technique: Single frontal view of the chest was obtained Comparison: None FINDINGS: Lines and Tubes: None Lungs: No focal consolidation. Increased soft tissue density over the right chest. Most likely from a breast implant correlate with clinical findings. Pleura: No effusion. No pneumothorax. Cardiomediastinal contours: Unremarkable Bones: No acute osseous abnormality. IMPRESSION: 1. No acute cardiopulmonary disease. --------- US OF THE RIGHT BREAST INDICATION: R breast swelling/ba TECHNIQUE: All 4 quadrants, subareolar region and axillary region of the RIGHT breast were evaluated with ultrasound COMPARISON: None FINDINGS: Right breast implant is present. No solid or suspicious masses. No areas of architectural distortion. No malignant adenopathy. No dominant cysts are present. IMPRESSION: There is no sonographic evidence for malignancy. Right breast implant is present. No definite signs of implant rupture. Recommend further evaluation with bilateral diagnostic breast mammography and breast MRI to assess for integrity of implant. ACR Bi Rads Category:Category 0-"INCOMPLETE" (Needs Additional Imaging Evaluation)) Condition at Discharge: Stable Final Diagnosis/Problems List Hypertensive Urgency Acute Chest Pain, Likely due to breast implant Possible breast implant rupture; no signs/symptoms of infection Depression Anxiety History of breast cancer in remission Polysubstance use disorder Discharge Disposition: Home Discharge Instruct/Medications Diet: Regular Activity: No Restrictions, As Tolerated Follow Up/Referral: Follow up with Discharge clinic on Wednesday Medications: As Per EMR Scheduled Amlodipine Besylate (Norvasc Tablet), 10 MG PO DAILY Losartan Potassium (Losartan Potassium), 50 MG PO DAILY Discharge Statement: "Patient was advised to return to the ER or call 911 if any headaches, dizziness, shortness of breath, chest pain, abdominal pain, bleeding, fevers, or worsening of medical condition. Patient was counseled about treatment plan, medications, possible side effects, patientverbalized understanding. All questions were answered to the best of my ability. This discharge took greater then 30 minutes in planning, reviewing documentation, counseling the patient, and discussing with other team members." ASSESSMENT ASSESSMENT Assessment Hypertensive urgency Date of Service: Feb 17, 2025 Billing Provider: NGOZI BETANCOURT MD Common Visit Codes: 56463-TUM/OBS DISCH DAY >30min ANTON RAYMOND RESIDENT Feb 17, 2025 16:56 NGOZI BETANCOURT MD Feb 17, 2025 22:32
--- NOTE | 2025-02-17 18:58 | DVHSR ---
APPROVED REPORT EXAM: Two-dimensional and M-mode echocardiogram with Doppler and color Doppler. Blood Pressure: 158/94 mmHg INDICATION HYPERTENSIVE URGENCY RISK FACTORS Height: 5'6, Weight: 216 DIMENSIONS LVDd4.5 (3.8-5.7cm)LA (2D)3.7 (1.9-4.0cm)Aortic Root3.0 (2.0-3.7cm) LVDs3.0 (2.5-4.0cm)LA (MM) (1.9-4.0cm)Aortic Cusp Exc1.5 (1.5-2.0cm) EF (%) 60.0 (55-70%)Rt. Atrium3.4 (1.9-4.0cm)Asc. Aorta cm IVSd0.9 (0.7-1.1cm)RV (D)3.7 (1.8-2.4cm) PWd0.9 (0.7-1.1cm) Mitral Valve MitralMitral Stenosis E wave0.80m/sMV Mean GR.mmHg A wave0.88m/sMV Peak GR.82mmHg E/A ratio0.92D MVAcm2 DECEL [id number] 1/2 Timems Aortic Valve Aortic ValveAortic Stenosis V10.93m/Nerissa Mean GR.3mmHg V21.18m/Nerissa Peak GR.6mmHg LVOT Diameter1.8 (1.8-2.4cm)Doppler AVA2.00cm2 Other Information Technically limited study due to Pt had double masectomy & breast implants Conclusion Left ventricle: Left ventricle was normal-sized with normal systolic function. LVEF was 60-65%. Di astolic function was considered normal. There was no wall motion abnormality. Right ventricle was normal-sized with normal systolic function. Both atria were normal-sized. Aortic valve was not well visualized. There was no aortic insufficiency/stenosis. There was trace m itral regurgitation. There was no tricuspid regurgitation. Pulmonary valve was not well visualized. As there was no good tricuspid regurgitation jet, right ventricular systolic pressure could not be es timated. There was no pericardial effusion. There was no echocardiographic evidence for pulmonary hypertensio n.
[2025-02-19 10:59] LABS: CA 27.29 <9.0 U/mL (0.0-38.6)
== END 2025-02-17 16:40 | disposition home or self-care (01) | DRG 385 ==
LOC: ER 16:24 → OVERFLOW 23:49 → TELE-WESTW 02-16 18:02
PROVIDERS: ADMIT Internal Medicine; ATTEND Internal Medicine
DX: T85.49XA Other mechanical complication of breast prosthesis and implant, initial encounter (principal); F19.90 Other psychoactive substance use, unspecified, uncomplicated; F32.A Depression, unspecified; I10 Essential (primary) hypertension; F41.9 Anxiety disorder, unspecified; I16.0 Hypertensive urgency; Z98.82 Breast implant status; Z90.13 Acquired absence of bilateral breasts and nipples; Z85.3 Personal history of malignant neoplasm of breast; Z79.899 Other long term (current) drug therapy; Y84.9 Medical procedure, unspecified as the cause of abnormal reaction of the patient, or of later complication, without mention of misadventure at the time of the procedure; Y92.89 Other specified places as the place of occurrence of the external cause
CPT/HCPCS: 36415; 71045; 71250; 76642; 76856; 80048; 80053; 81001; 81025; 83605; 85025; 86300; 86304; 87040; 93306; 96374; 96375; 99291; G0378

== ENCOUNTER 2025-05-09 15:31 | Inpatient (IN) | payer MEDICAID, OTHER ==
[~2025-05-09] VITALS: Ht 167.6 cm; Wt 85.0 kg
[~2025-05-09 15:31] MED LIST: AML5T PO; LOSA-534 PO
--- NOTE | 2025-05-09 15:52 | ECG ---
[facility] Test Date: 2025-05-09 Test Time: 15:47:27 Pat Name: LATOYA CHANEY Department: Room: 0272T Gender: F Enrollment Management Vice President: JAZMYN : 1970 Requested By: MARIA INES CINTRON Order Number: [id number] Reading MD: Julio Thornton Measurements Intervals [place] Rate: 124 P: 76 FL: 171 QRS: 57 QRSD: 88 T: 12 QT: 305 QTc: 438 Interpretive Statements Sinus tachycardia Probable left atrial enlargement Electronically Signed On 05-10-2025 22:18:41 PDT by Julio Thornton Please click the below link to view image of tracing.
--- NOTE | 2025-05-09 16:06 | ED.PDOC ---
History of Present Illness HPI Comments 54-year-old female who comes in with chief complaint of elevated blood pressure. The patient also states that she has been hot and has been vomiting. The patient also states that her feet is hurting. The patient denies any other complaints at this time. The patient has no chest pain but states that she also feels that the heart rate seems to be somewhat rapid heartbeat. The patient states that she has has a history of breast cancer with bilateral mastectomy and feels that she may be experiencing metastatic disease. Chief Complaint: High Blood Pressure Time Seen by MD: 15:32 Reviewed Notes: Nurses Notes, Medications, Allergies (No allergies to medications) Allergies: Coded Allergies: NO KNOWN ALLERGIES (Unverified , 02/15/25) Home Meds Active Scripts Losartan Potassium (Losartan Potassium) 50 Mg Tab, 50 MG PO DAILY for 30 Days, #30 TAB 2 Refills Prov:WILLEM MURDOCK RESIDENT 02/17/25 Amlodipine Besylate (NORVASC TABLET) 5 Mg Tb, 10 MG PO DAILY for 30 Days, #60 TAB 2 Refills Prov:WILLEM MURDOCK RESIDENT 02/17/25 Information Source: Patient Mode of Arrival: Ambulatory Severity: Moderate Timing: Days Duration: Since onset Prehospital treatment: None Associated signs and symptoms Generalized weakness with rapid heart rate Past Medical History PAST MEDICAL HISTORY: Cancer, HTN Surgical History: Hernia Repair Surgical History (Other): Bilateral mastectomy FIELD CLINICAL ENGINEER History: Denies all FIELD CLINICAL ENGINEER Hx Family History Family History: Family hx of DM, Family hx of Cancer, Family hx of heart thor Social History Smoker: Cigarettes Alcohol: Denies ETOH Use Drugs: Marijuana Lives In: Home Constitutional: reports: weakness; denies: chills, diaphoresis, fatigue, fever, malaise, sweats, others EENTM: denies: blurred vision, double vision, ear bleeding, ear discharge, ear drainage, ear pain, ear ringing, eye pain, eye redness, hearing loss, mouth pain, mouth swelling, nasal discharge, nose bleeding, nose congestion, nose pain, photophobia, tearing, throat pain, throat swelling, voice changes, others Respiratory: denies: cough, hemoptysis, orthopnea, SOB at rest, shortness of breath, SOB with excertion, stridor, wheezing, others Cardiovascular: reports: palpitations; denies: chest pain, dizzy spells, diaphoresis, Dyspnea on exertion, edema, irregular heart beat, left arm pain, lightheadedness, PND, syncope, others Gastrointestinal: reports: nausea, vomiting; denies: abdomen distended, abdominal pain, blood streaked bowels, constipated, diarrhea, dysphagia, difficulty swallowing, hematemesis, melena, poor appetite, poor fluid intake, rectal bleeding, rectal pain, others Genitourinary: denies: abnormal vagina bleeding, burning, dyspareunia, dysuria, flank pain, frequency, hematuria, incontinence, pain, , vagina discharge, urgency, others Neurological: denies: dizziness, fainting, headache, left sided numbness, left sided weakness, numbness, paresthesia, pre-existing deficit, right sided numbness, right sided weakness, seizure, speech problems, tingling, tremors, weakness, others Musculoskeletal: denies: back pain, gout, joint pain, joint swelling, muscle pain, muscle stiffness, neck pain, others Integumetry: denies: bruises, change in color, change in hair/nails, dryness, laceration, lesions, lumps, rash, wounds, others Allergic/Immunocompromised: denies: Difficulty Healing, Frequent Infections, Hives, Itching, others Hematologic/Lymphatic: denies: anemia, blood clots, easy bleeding, easy bruising, swollen glands, others Endocrine: denies: excessive hunger, excessive sweating, excessive thirst, excessive urination, flushing, intolerance to cold, intolerance to heat, unexplained weight gain, unexplained weight loss, others Psychiatric: denies: anxiety, bipolar disorder, depression, hopeless, panic disorder, schizophrenia, sleepless, suicidal, others Physical Exam General Appearance: Moderate Distress HEENT: Normal ENT Inspection, Pharynx Normal, TMs Normal Neck: Full Range of Motion, Non-Tender, Normal, Normal Inspection Respiratory: Chest Non-Tender, Lungs Clear, No Accessory Muscle Use, No Respiratory Distress, Normal Breath Sounds Cardiovascular: No Edema, No JVD, No Murmur, No Gallop, Tachycardia Breast Exam: Deferred Gastrointestinal: No Organomegaly, Non Tender, No Pulsatile Mass, Normal Bowel Sounds, Soft Genitalia: Deferred Pelvic: Deferred Rectal: Deferred Extremities: No calf tenderness, Normal capillary refill, Normal inspection, Normal range of motion, Non-tender, No pedal edema Musculoskeletal : Apperance: Normal Neurologic: Alert, programmer analyst consultant II-XII nml as Tested, No Motor Deficits, Normal Affect, Normal Mood, No Sensory Deficits Cerebellar Function: Normal Reflexes: Normal Skin: Dry, Normal Color, Warm Lymphatic: No Adenopathy Was a procedure done? Was a procedure done?: No EKG EKG : Pulse Rate (adult): 124 Cardiac Rhythm: ST Block: None ST: Nonsp Differential Dx Considerations may include: Generalized weakness, electrolyte imbalance, dehydration, sepsis, UTI X-Ray, Labs, Meds, VS Vital Signs Date Time Temp Pulse Resp B/P (MAP) Pulse Ox O2 Delivery O2 Flow Rate FiO2 05/09/25 16:06 124 05/09/25 15:47 124 05/09/25 15:32 98.2 118 18 219/109 96 98.2 Lab Test 05/09/25 17:00 05/09/25 16:12 Range/Units Troponin I High Sensitivity Pending 5 </=34 ng/L White Blood Count 11.3 H 4.4-10.8 10^3/uL Red Blood Count 4.35 4.0-5.20 10^6/uL Hemoglobin 13.4 12.2-16.2 g/dL Hematocrit 38.9 36.0-46.0 % Mean Corpuscular Volume 89.5 80.0-100.0 fL Mean Corpuscular Hemoglobin 30.7 28.0-32.0 pg Mean Corpuscular Hemoglobin Concent 34.3 32.0-36.0 g/dL Red Cell Distribution Width 12.4 11.8-14.3 % Platelet Count 406 140-450 10^3/uL Mean Platelet Volume 7.1 6.9-10.8 fL Neutrophils (%) (Auto) 80.9 H 37.0-80.0 % Lymphocytes (%) (Auto) 12.2 10.0-50.0 % Monocytes (%) (Auto) 5.7 0.0-12.0 % Eosinophils (%) (Auto) 0.7 0.0-7.0 % Basophils (%) (Auto) 0.5 0.0-2.0 % Neutrophils # (Auto) 9.2 H 1.6-8.6 10 ^3/uL Lymphocytes # (Auto) 1.4 0.4-5.4 10 ^3/uL Monocytes # (Auto) 0.6 0-1.3 10 ^3/uL Eosinophils # (Auto) 0.1 0-0.8 10 ^3/uL Basophils # (Auto) 0.1 0-0.2 10 ^3/uL Nucleated Red Blood Cells 0.1 % Sodium Level 140 136-145 mmol/L Potassium Level 3.9 3.5-5.1 mmol/L Chloride Level 106 98-107 mmol/L Carbon Dioxide Level 23 20-31 mmol/L Anion Gap 11 5-15 Blood Urea Nitrogen 21 9-23 mg/dL Creatinine 1.33 H 0.550-1.02 mg/dL Glomerular Filtration Rate Calc 47 >90 mL/min BUN/Creatinine Ratio 15.8 10.0-20.0 Serum Glucose 144 H 74-106 mg/dL Calcium Level 9.7 8.7-10.4 mg/dL PROCEDURE(s): CXRP - CHEST PORTABLE IMPRESSION: NO ACUTE CARDIOPULMONARY PROCESS. IV Hep-Lock was established The patient is being given normal saline as a bolus. The patient's CBC and chemistry panel are within normal limits The 1st troponin level is negative The patient has also significantly hypertensive The patient is being given Lopressor IV push The patient is being admitted at this time Images Reviewed?: Images reviewed and evaluated by me Time of 1ST Reevaluation: 16:06 Reevaluation 1ST: Unchanged Patient Education/Counseling: Diagnosis, Treatment, Prognosis Family Education/Counseling: No Family Present SEPSIS Sepsis Screen Date sepsis recognized/suspect: May 09, 2025 Time Sepsis recognized/suspect: 1533 Recent Procedure: No On Antibiotic Therapy: No Respiratory Rate >20: No Heart Rate >90: No Temp<36 C (96.8 F) or >38.3 C: No SBP <90 or MAP <65 mmHG: No New Acute Mental Status Change: No Is the patient on CPAP, BIPAP,: No Physician Orders Chest Portable (05/09/25 15:54) Urinalysis (05/09/25 15:54) Heplock Iv (05/09/25 15:54) Social Worker (05/09/25 15:54) Blood Pressure (05/09/25 15:54) Pulse Oximetry (05/09/25 15:54) Troponin-I Hs (05/09/25 16:54) Troponin-I Hs (05/09/25 18:54) Vital Signs Date Time Temp Pulse Resp B/P (MAP) Pulse Ox O2 Delivery O2 Flow Rate FiO2 05/09/25 16:06 124 05/09/25 15:47 124 05/09/25 15:32 98.2 118 18 219/109 96 98.2 Laboratory Tests Test 05/09/25 16:12 White Blood Count 11.3 10^3/uL (4.4-10.8) H Departure 1 Departure Time of Disposition: 17:23 Impression: Primary Impression: Generalized weakness Additional Impression: Accelerated hypertension Disposition: ADMITTED INPATIENT Admit to: Tele Condition: Fair Critical Care Note Critical Care Time?: No Stability Stability form required: Yes Unstable for transfer: Telemetry monitoring (Telemetry monitoring required), ED Physician Assesment (Clinical assesment) Heart Score Heart Score: Heart Score Response (Comments) Value History N/A 0 EKG N/A 0 Age N/A 0 Risk Factors N/A 0 Troponin N/A 0 Total 0 I personally scribed for MARIA INES CINTRON MD ([email or web address]) on 05/09/25 at 16:43. Electronically submitted by Chelsi Smith ([email or web address]). MARIA INES CINTRON MD May 09, 2025 16:06
[2025-05-09 16:33] LABS: Hematocrit 38.9 % (36.0-46.0); Hemoglobin 13.4 g/dL (12.2-16.2); Mean Corpuscular Hemoglobin 30.7 pg (28.0-32.0); Mean Corpuscular Volume 89.5 fL (80.0-100.0); Nucleated Red Blood Cells % 0.1 %
[2025-05-09 16:34] LABS: Anion Gap 11 (5-15); Carbon Dioxide 23 mmol/L (20-31); Chloride 106 mmol/L (98-107); Potassium 3.9 mmol/L (3.5-5.1); Sodium 140 mmol/L (136-145)
[2025-05-09 16:35] LABS: Calcium 9.7 mg/dL (8.7-10.4)
[2025-05-09 16:40] LABS: BUN/Creatinine Ratio 15.8 (10.0-20.0); Blood Urea Nitrogen 21 mg/dL (9-23)
[2025-05-09 16:41] LABS: Glucose 144 mg/dL (74-106)
--- NOTE | 2025-05-09 16:41 | DVH ---
CLINICAL HISTORY: weakness TECHNIQUE: Single view of the chest was obtained. COMPARISON: CT CHEST WITHOUT CONTRAST on DOS: 02/16/25, XY CHEST XRAY 1 VIEW on DOS: 02/15/25 FINDINGS: The heart size and pulmonary vasculature are normal. The lungs are clear. IMPRESSION: NO ACUTE CARDIOPULMONARY PROCESS.
[2025-05-09] MEDS ORDERED: NITROGLYCERIN 0.4 MG SL TAB SL PRN (20:00)
[2025-05-09] MEDS ORDERED: LABETALOL HCL 20 MG/4 ML VL IV PRN (20:00)
[2025-05-09] MEDS ORDERED: MORPHINE SULFATE 4 MG/ML SYR/VIAL IV PRN (20:00)
[2025-05-09] MEDS: METOPROLOL TARTRATE 1MG/1ML-5ML VIAL IV ONE (21:10)
[2025-05-09 21:15] VITALS: O2SAT 98
[2025-05-10] VITALS (9 sets, daily range): BP systolic 105–156; BP diastolic 69–91; PULSE 73–95; RESP 17–19; TEMP 97.6–98.1; O2SAT 96–98
--- NOTE | 2025-05-10 00:46 | DVHHP2 ---
History of Present Illness Reason for Visit: High blood pressure History of Present Illness 54-year-old female presents for evaluation of high blood pressure. Patient endorses a two day history of uncontrolled blood pressure. She reports being compliant with her medications. Reports nausea and a frontal headache. No dizziness. No chest pain at the moment. Past Medical History Hypertension and breast cancer Past Surgical History Hernia repair and mastectomy Family History Heart disease and cancer Smoke: <1 pack per day ALCOHOL: none Drugs: Marijuana Review of Systems Review of Systems Review of systems are currently negative otherwise addressed in HPI. Allergies: Coded Allergies: NO KNOWN ALLERGIES (Unverified , 02/15/25) Medications Current Medications Medications Dose Ordered Sig/Johanny Route Start Time Stop Time Status Last Admin Dose Admin Amlodipine Besylate 10 mg DAILY PO 05/10/25 10:00 Hydrochlorothiazide 25 mg DAILY PO 05/10/25 10:00 Losartan Potassium 100 mg DAILY PO 05/10/25 10:00 Labetalol HCl 10 mg Q4HPRN PRN IV 05/09/25 20:00 Temazepam 15 mg QHSP PRN PO 05/09/25 20:00 Ondansetron HCl 4 mg Q4HP PRN IV 05/09/25 20:00 Acetaminophen 650 mg Q6HP PRN PO 05/09/25 20:00 Nitroglycerin 0.4 mg Q5MINP PRN SL 05/09/25 20:00 Morphine Sulfate 2 mg Q30M PRN IV 05/09/25 20:00 Exam Vital Signs Vital Signs Date Time Temp Pulse Resp B/P (MAP) Pulse Ox O2 Delivery O2 Flow Rate FiO2 05/09/25 22:55 98.1 89 16 140/105 (117) 96 98.1 05/09/25 21:15 Room Air* 0 21 Exam Gen: 54-year-old female in mild distress Skin: Warm, dry, normal color and texture, no rash. HEENT: Normocephalic atraumatic, mucous membranes moist and pink. Neck: Cervical and supraclavicular nodes normal without enlargement, trachea is midline, thyroid gland is normal without masses. Pulmonary: Clear to auscultation and percussion bilaterally. Cardiac: Regular rate and rhythm. No murmur Abdomen: Soft, nontender, nondistended, bowel sounds present all 4 quadrants, no guarding, no rigidity, no organomegaly. Extremities: No cyanosis, clubbing, no edema Neuro: Cranial nerves II through XII grossly intact, normal affect and speech, no focal motor deficits. Labs/Xrays ORDERING PHYSICIAN: MARIA INES CINTRON MD PROCEDURE(s): CXRP - CHEST PORTABLE REASON: weakness ORDER NUMBER(s): [id number], ACCESSION NUMBER(s): [id number] CLINICAL HISTORY: weakness TECHNIQUE: Single view of the chest was obtained. COMPARISON: CT CHEST WITHOUT CONTRAST on DOS: 02/16/25, XY CHEST XRAY 1 VIEW on DOS: 02/15/25 FINDINGS: The heart size and pulmonary vasculature are normal. The lungs are clear. IMPRESSION: NO ACUTE CARDIOPULMONARY PROCESS. RING PHYSICIAN: JUANY DILLARD PROCEDURE(s): ECIDC - ECHO 2D MODE CARDIAC DOP REASON: hypertensive urgency ORDER NUMBER(s): [id number], ACCESSION NUMBER(s): [id number] APPROVED REPORT EXAM: Two-dimensional and M-mode echocardiogram with Doppler and color Doppler. Blood Pressure: 158/94 mmHg INDICATION HYPERTENSIVE URGENCY RISK FACTORS Height: 5'6, Weight: 216 DIMENSIONS LVDd 4.5 (3.8-5.7cm) LA (2D) 3.7 (1.9-4.0cm) Aortic Root 3.0 (2.0- 3.7cm) LVDs 3.0 (2.5-4.0cm) LA (MM) (1.9-4.0cm) Aortic Cusp Exc 1.5 (1.5- 2.0cm) EF (%) 60.0 (55-70%) Rt. Atrium 3.4 (1.9-4.0cm) Asc. Aorta cm IVSd 0.9 (0.7-1.1cm) RV (D) 3.7 (1.8-2.4cm) PWd 0.9 (0.7-1.1cm) Mitral Valve Mitral Mitral Stenosis E wave 0.80m/s MV Mean GR. mmHg A wave 0.88m/s MV Peak GR. 82mmHg E/A ratio 0.9 2D MVA cm2 DECEL Time 221ms PRESS 1/2 Time ms Aortic Valve Aortic Valve Aortic Stenosis V1 0.93m/s AO Mean GR. 3mmHg V2 1.18m/s AO Peak GR. 6mmHg LVOT Diameter 1.8 (1.8-2.4cm) Doppler RUT 2.00cm2 Other Information Technically limited study due to Pt had double masectomy & breast implants Conclusion Left ventricle: Left ventricle was normal-sized with normal systolic function. LVEF was 60-65%. Diastolic function was considered normal. There was no wall motion abnormality. Right ventricle was normal-sized with normal systolic function. Both atria were normal-sized. Aortic valve was not well visualized. There was no aortic insuffici ency/stenosis. There was trace mitral regurgitation. There was no tricuspid regurgitation. Pulmonary valve was not well visualized. As there was no good tricuspid regurgitation jet, right ventricular systolic pressure could not be estimated. There was no pericardial effusion. There was no echocardiographic evidence for pulmonary hypertension. SIGNED BY: URSZULA JOHNSON MD Labs Test 05/09/25 17:00 05/09/25 16:12 Range/Units Troponin I High Sensitivity 5 </=34 ng/L White Blood Count 11.3 H 4.4-10.8 10^3/uL Red Blood Count 4.35 4.0-5.20 10^6/uL Hemoglobin 13.4 12.2-16.2 g/dL Hematocrit 38.9 36.0-46.0 % Mean Corpuscular Volume 89.5 80.0-100.0 fL Mean Corpuscular Hemoglobin 30.7 28.0-32.0 pg Mean Corpuscular Hemoglobin Concent 34.3 32.0-36.0 g/dL Red Cell Distribution Width 12.4 11.8-14.3 % Platelet Count 406 140-450 10^3/uL Mean Platelet Volume 7.1 6.9-10.8 fL Neutrophils (%) (Auto) 80.9 H 37.0-80.0 % Lymphocytes (%) (Auto) 12.2 10.0-50.0 % Monocytes (%) (Auto) 5.7 0.0-12.0 % Eosinophils (%) (Auto) 0.7 0.0-7.0 % Basophils (%) (Auto) 0.5 0.0-2.0 % Neutrophils # (Auto) 9.2 H 1.6-8.6 10 ^3/uL Lymphocytes # (Auto) 1.4 0.4-5.4 10 ^3/uL Monocytes # (Auto) 0.6 0-1.3 10 ^3/uL Eosinophils # (Auto) 0.1 0-0.8 10 ^3/uL Basophils # (Auto) 0.1 0-0.2 10 ^3/uL Nucleated Red Blood Cells 0.1 % Sodium Level 140 136-145 mmol/L Potassium Level 3.9 3.5-5.1 mmol/L Chloride Level 106 98-107 mmol/L Carbon Dioxide Level 23 20-31 mmol/L Anion Gap 11 5-15 Blood Urea Nitrogen 21 9-23 mg/dL Creatinine 1.33 H 0.550-1.02 mg/dL Glomerular Filtration Rate Calc 47 >90 mL/min BUN/Creatinine Ratio 15.8 10.0-20.0 Serum Glucose 144 H 74-106 mg/dL Calcium Level 9.7 8.7-10.4 mg/dL SEPSIS Sepsis Screen Date sepsis recognized/suspect: May 09, 2025 Time Sepsis recognized/suspect: 1533 Recent Procedure: No On Antibiotic Therapy: No Respiratory Rate >20: No Heart Rate >90: No Temp<36 C (96.8 F) or >38.3 C: No SBP <90 or MAP <65 mmHG: No New Acute Mental Status Change: No Is the patient on CPAP, BIPAP,: No Physician Orders Amlodipine Tablet (Norvasc Tablet) (05/10/25 10:00) Hydrochlorothiazide Tablet (Hydrochlorot (05/10/25 10:00) Losartan Tablet (Cozaar Tablet) (05/10/25 10:00) Basic Metabolic Panel (05/10/25 04:00) Labetalol Hcl (Labetalol Hcl) (05/09/25 20:00) Admit (05/09/25 19:48) Temazepam (Restoril) (05/09/25 20:00) Ondansetron Hcl (Zofran) (05/09/25 20:00) Condition: Fair (05/09/25 19:48) Acetaminophen Tablet (Tylenol Tablet) (05/09/25 20:00) Bedrest With Bathroom Privileg (05/09/25 19:48) Nitroglycerin Sublingual (Ntrostat Subli (05/09/25 20:00) Stat Ekg For Chest Pain (05/09/25 19:48) Notify Of Changes From Base (05/09/25 19:48) Claim Processing Specialist For 24 Hours (05/09/25 19:48) Emergency Dysrhythmia Protocol (05/09/25 19:48) Rhythm Strips Once Every Shift (05/09/25 19:48) Oxygen By Nasal Cannula (05/09/25 19:48) Morphine Sulfate Injection (05/09/25 20:00) Vital Signs Date Time Temp Pulse Resp B/P (MAP) Pulse Ox O2 Delivery O2 Flow Rate FiO2 05/09/25 22:55 98.1 89 16 140/105 (117) 96 98.1 05/09/25 21:15 98 Room Air* 0 21 05/09/25 21:10 100 187/100 05/09/25 20:57 98.5 98 20 187/100 (129) 98 98.5 05/09/25 18:43 98.2 107 19 171/129 (143) 96 98.2 05/09/25 18:43 107 19 96 Room Air Laboratory Tests Test 05/09/25 16:12 White Blood Count 11.3 10^3/uL (4.4-10.8) H Medications Medications Dose Ordered Sig/Johanny Route Start Time Stop Time Status Last Admin Dose Admin Metoprolol Tartrate 5 mg ONCE ONCE IV 05/09/25 16:00 05/09/25 16:01 DC 05/09/25 21:10 5 MG Assessment/Plan Assessment/Plan Assessment Hypertensive urgency Acute kidney injury Plan Admit the patient to telemetry to the hospitalist As needed antihypertensives Resume home medications Continue treatment per orders. Plan discussed with: Patient My Orders Orders - PIERRE PORRAS Procedure Category Date Status Time Amlodipine Tablet PHA 05/10/25 In Process (Norvasc Tablet) 10:00 Hydrochlorothiazide PHA 05/10/25 In Process Tablet (Hydrochlorot 10:00 Losartan Tablet PHA 05/10/25 In Process (Cozaar Tablet) 10:00 Basic Metabolic Panel LAB 05/10/25 Logged 04:00 Labetalol Hcl PHA 05/09/25 In Process (Labetalol Hcl) 20:00 Admit ADMIT 05/09/25 Transmitted 19:48 Temazepam (Restoril) PHA 05/09/25 In Process 20:00 Ondansetron Hcl PHA 05/09/25 In Process (Zofran) 20:00 Condition: Fair LISA 05/09/25 In Process 19:48 Acetaminophen Tablet PHA 05/09/25 In Process (Tylenol Tablet) 20:00 Bedrest With Bathroom LISA 05/09/25 In Process Privileg 19:48 Nitroglycerin PHA 05/09/25 In Process Sublingual (Ntrostat 20:00 Stat Ekg For Chest [facility] 05/09/25 In Process Pain 19:48 Notify Md Of Changes [facility] 05/09/25 In Process From Base 19:48 Claim Processing Specialist For [facility] 05/09/25 In Process 24 Hours 19:48 Emergency Dysrhythmia [facility] 05/09/25 In Process Protocol 19:48 Rhythm Strips Once [facility] 05/09/25 In Process Every Shift 19:48 Oxygen By Nasal RT 05/09/25 Transmitted Cannula 19:48 Morphine Sulfate PHA 05/09/25 In Process Injection 20:00 Date of Service: May 09, 2025 Billing Provider: PIERRE PORRAS Common Visit Codes: [id number] INP/OBS CARE (HIGH) PIERRE PORRAS May 10, 2025 00:46
[2025-05-10] MEDS: TEMAZEPAM 15 MG CAP PO PRN (03:39)
[2025-05-10] MEDS: ACETAMINOPHEN 325 MG TAB PO PRN (03:39)
[2025-05-10 06:25] LABS: Potassium 3.6 mmol/L (3.5-5.1); Sodium 142 mmol/L (136-145)
[2025-05-10 06:26] LABS: Anion Gap 12 (5-15); Calcium 9.3 mg/dL (8.7-10.4); Carbon Dioxide 23 mmol/L (20-31)
[2025-05-10 06:30] LABS: Chloride 107 mmol/L (98-107)
[2025-05-10 06:31] LABS: BUN/Creatinine Ratio 23.9 (10.0-20.0); Glucose 106 mg/dL (74-106)
[2025-05-10 06:32] LABS: Blood Urea Nitrogen 26 mg/dL (9-23)
[2025-05-10] MEDS: LOSARTAN POTASSIUM 50 MG TAB PO SCH (09:40)
[2025-05-10] MEDS: hydroCHLOROthiazide 25 MG TAB PO SCH (09:40)
[2025-05-10 10:53] LABS: Urine Protein, UAD Negative (Negative)
[2025-05-10] MEDS: ONDANSETRON HCL 4 MG/2 ML VIAL IV PRN (15:15)
[2025-05-10] MEDS: LACTATED RINGER'S 1,000 ML IV ONE (17:45)
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
[2025-05-11] VITALS (8 sets, daily range): BP systolic 128–167; BP diastolic 61–86; PULSE 74–97; RESP 18–20; TEMP 97.9–98.7; O2SAT 93–97
[2025-05-11] MEDS: BACLOFEN 10 MG TAB PO ONE (10:45)
[2025-05-11 11:07] LABS: Hematocrit 38.0 % (36.0-46.0); Hemoglobin 12.9 g/dL (12.2-16.2); Mean Corpuscular Hemoglobin 30.5 pg (28.0-32.0); Mean Corpuscular Volume 90.1 fL (80.0-100.0); Nucleated Red Blood Cells % 0.2 %
[2025-05-11] MEDS: HYDROcodone-ACET 5/325MG TAB PO PRN (11:21)
[2025-05-11 11:23] LABS: Alanine Aminotransferase 15 U/L (7-40); Alkaline Phosphatase 86 U/L (46-116); Anion Gap 7 (5-15); BUN/Creatinine Ratio 14.3 (10.0-20.0); Blood Urea Nitrogen 12 mg/dL (9-23); Calcium 9.5 mg/dL (8.7-10.4); Carbon Dioxide 26 mmol/L (20-31); Chloride 106 mmol/L (98-107); Glucose 85 mg/dL (74-106); Potassium 4.2 mmol/L (3.5-5.1); Sodium 139 mmol/L (136-145); Total Protein 7.1 g/dL (5.7-8.2)
[2025-05-11 11:24] LABS: Albumin 4.2 g/dL (3.2-4.8); Bilirubin, Total 0.5 mg/dL (0.2-1.0)
--- NOTE | 2025-05-11 11:44 | DVH ---
Technique: Real-time ultrasound images through the pelvis using a transabdominal transducer. For bett er evaluation of the ovaries and endometrial stripe, an endovaginal transducer was used. Indication: adnexal pain, eval uterus/ovary causes Comparison: US PELVIC on DOS: 02/16/25 Findings: The uterus measures 5.7 cm. The endometrial stripe measures 2 mm. Echogenic circumferential lesion of the cervical region measuring 1.6 cm. There is a cervical nabothian cyst measuring 4 mm Bilateral ovaries nonvisualized. There is no significant free fluid in the pelvis. Impression: Bilateral ovaries nonvisualized. Echogenic circumferential lesion in the cervical region measuring 1.6 cm. Recommend school inspector consultation to further evaluate and MRI pelvis with and without contrast to evaluate for potential mass and to e xclude any type of neoplastic process.
--- NOTE | 2025-05-11 11:44 | DVH ---
Technique: Real-time ultrasound images through the pelvis using a transabdominal transducer. For bett er evaluation of the ovaries and endometrial stripe, an endovaginal transducer was used. Indication: adnexal pain, eval uterus/ovary causes Comparison: US PELVIC on DOS: 02/16/25 Findings: The uterus measures 5.7 cm. The endometrial stripe measures 2 mm. Echogenic circumferential lesion of the cervical region measuring 1.6 cm. There is a cervical nabothian cyst measuring 4 mm Bilateral ovaries nonvisualized. There is no significant free fluid in the pelvis. Impression: Bilateral ovaries nonvisualized. Echogenic circumferential lesion in the cervical region measuring 1.6 cm. Recommend delicatessen slicer consultation to further evaluate and MRI pelvis with and without contrast to evaluate for potential mass and to e xclude any type of neoplastic process.
[2025-05-11] MEDS: CYCLOBENZAPRINE HCL 10 MG TAB PO SCH (21:27)
[2025-05-12 06:31] LABS: Hematocrit 40.0 % (36.0-46.0); Hemoglobin 13.8 g/dL (12.2-16.2); Mean Corpuscular Hemoglobin 31.3 pg (28.0-32.0); Mean Corpuscular Volume 91.0 fL (80.0-100.0); Nucleated Red Blood Cells % 0.1 %
[2025-05-12 08:30] VITALS: PULSE 73
[2025-05-12 09:00] VITALS: BP 150/75; PULSE 85; RESP 16; TEMP 98; O2SAT 96
[2025-05-12 13:00] VITALS: BP 148/77; PULSE 73; RESP 16; TEMP 97.8; O2SAT 97
--- NOTE | 2025-05-12 16:40 | DVHPN2 ---
Subjective I am assuming the care of the patient from today onwards who was under the care of the hospitalist team. Detailed sign out obtained. Chart reviewed. Patient was seen and evaluated by me in the presence of bedside RN. All the questions were answered. Reviewed: H&P Changes from previous H/P or p: No Changes General: Per HPI Objective Vitals Vital Signs Date Time Temp Pulse Resp B/P (MAP) Pulse Ox O2 Delivery O2 Flow Rate FiO2 05/12/25 13:00 97.8 73 16 148/77 (100) 97 97.8 05/12/25 08:16 Room Air* 0 21 Intake/Output Intake and Output 05/12/25 07:00 Intake Total 2120 ml Balance 2120 ml Intake Oral 1870 ml IV Total 250 ml # Voids 3 Exam HEENT pupils are reactive Neck is supple CV is S1-S2 regular rate and rhythm Respiratory diminished breath sounds bases GI positive bowel sounds soft nondistended nontender no guarding no rigidity Extremity no 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 Medications Current Medications Medications Dose Ordered Sig/Johnany Route Start Time Stop Time Status Last Admin Dose Admin Amlodipine Besylate 10 mg DAILY PO 05/10/25 10:00 05/12/25 09:18 10 MG Hydrochlorothiazide 25 mg DAILY PO 05/10/25 10:00 05/12/25 09:17 25 MG Losartan Potassium 100 mg DAILY PO 05/10/25 10:00 05/12/25 09:17 100 MG Temazepam 15 mg QHSP PRN PO 05/09/25 20:00 05/11/25 23:11 15 MG Ondansetron HCl 4 mg Q4HP PRN IV 05/09/25 20:00 05/10/25 15:15 4 MG Acetaminophen 650 mg Q6HP PRN PO 05/09/25 20:00 05/12/25 15:36 650 MG Nitroglycerin 0.4 mg Q5MINP PRN SL 05/09/25 20:00 Morphine Sulfate 2 mg Q30M PRN IV 05/09/25 20:00 Labetalol HCl 10 mg Q4HPRN PRN IV 05/10/25 14:45 Ceftriaxone Sodium 50 ml @ 100 mls/hr DAILY@09 IV 05/11/25 09:45 05/12/25 09:16 100 MLS/HR Metronidazole 100 ml @ 100 mls/hr Q8HR IV 05/11/25 14:00 05/12/25 13:54 100 MLS/HR Cyclobenzaprine HCl 10 mg HS PO 05/11/25 22:00 05/11/25 21:27 10 MG Acetaminophen/ Hydrocodone Bitart 1 tab Q4HPRN PRN PO 05/11/25 10:45 05/12/25 12:42 1 TAB Alprazolam 0.25 mg BIDPRN PO 05/12/25 16:45 UNV Laboratory Results Laboratory Tests 05/11/25 10:53 05/12/25 05:46 Urinalysis Test 05/10/25 10:42 Urine Color Light-yellow (Yellow) Urine Clarity Clear (Clear) Urine pH 5.5 (5.0-9.0) Urine Specific [place] 1.018 (1.001-1.035) Urine Protein Negative (Negative) Urine Ketones Negative (Negative) Urine Blood Trace /uL (Negative) H Urine Nitrite Negative (Negative) Urine Bilirubin Negative (Negative) Urine Urobilinogen Normal mg/dL (Negative) Urine Leukocyte Esterase Negative /uL (Negative) Urine RBC 2 /hpf (0 - 4) Urine Microscopic WBC 1 /HPF (0-5) Urine Squamous Epithelial Cells Few /hpf (<5) Urine Bacteria Few /hpf (None Seen) H Urine Glucose Normal mg/dL (Normal) Microbiology Microbiology Date/Time Source Procedure Growth Status 05/10/25 02:10 Nose MRSA Screen - Final Complete Assessment/Plan Assessment/Plan 54-year-old female with a known history of breast cancer status post tamoxifen therapy in the past, hypertension who initially presented to the hospital with a uncontrolled blood pressure and reported frontal headache found to have 1. Hypertensive urgency 2. Acute kidney injury suspected secondary to vasomotor nephropathy currently resolved 3. Nausea and vomiting suspected gastroenteritis currently resolved 4. Breast cancer status post bilateral mastectomy with a constructive surgery, status post hormonal therapy with the tamoxifen for one year 4. Cervical lesion with a recent history of Pap smear as an outpatient with Dr. Upton, Clinical Informatics Specialist consultation 5. Anxiety disorder -start Xanax 0.25 mg p.o. twice a day p.r.n. anxiety, increase the dose if it is not working, Gyne consultation for cervical lesion. Plan of care discussed with the patient who understand verbalized the understanding and agreeable to plan. Plan discussed with: Patient My Orders Orders - HALEIGH BUTT MD Procedure Category Date Status Time Alprazolam Tablet PHA 05/12/25 Logged (Xanax Tablet) 16:45 Date of Service: May 12, 2025 Billing Provider: HALEIGH BUTT MD Common Visit Codes: [id number] INP/OBS CARE(MOD) HALEIGH BUTT MD May 12, 2025 16:40
[2025-05-12] MEDS ORDERED: ALPRAZolam 0.25 MG TAB PO SCH (16:45)
[2025-05-12] MEDS: ALPRAZolam 0.25 MG TAB PO PRN (17:34)
[2025-05-12 20:00] VITALS: PULSE 84; RESP 18
[2025-05-12 20:41] VITALS: BP 149/88; PULSE 82; RESP 18; TEMP 98.1; O2SAT 95
[2025-05-13] VITALS (8 sets, daily range): BP systolic 117–164; BP diastolic 66–89; PULSE 63–110; RESP 16–20; TEMP 97.8–98.6; O2SAT 93–99
--- NOTE | 2025-05-13 09:28 | DVHINCON2 ---
Date of service: May 13, 2025 Referring Physician HOSPITALIST Reason for Consultation CERVICAL MASS History of Present Illness PT IS ADMITTED FOR HYPERTENSIVE CRISIS,SHE HAS HAD BREAST CANCER AND BILAT MASTECTOMY WITH RECONSTRUCTION .PT WAS ON TOMOXFIN FOR ONE YR THEN WENT OFF OF IT.PT HAS SOME AUB ,STATES SHE IS SCHED FOR CERVICAL BIOPSY AND D&C,HYSTEROSCOPY BY DR ALVAREZ ON 06/03.CURRENTLY PT HAS NO COMPLAINTS OF BLEEDING OR PAIN .PELVIC SONO REVEALS 1.6CM LESION IN CX Past Medical History HTN,BREAST CA Past Surgical History BILAT MASTECTOMY WITH RECONSTRUCTIONB ,HERNIA REPAIR Family History CANCER AND CAD Social History POS FOR OCCASSIONAL SMOKING Patient Family History: Cardiovascular disease G8 FATHER Colon cancer G8 BROTHER Diabetes mellitus G8 FATHER G8 SISTER FH: prostate cancer G8 FATHER FH: schizophrenia G8 SISTER Allergies: Coded Allergies: NO KNOWN ALLERGIES (Unverified , 02/15/25) Home Meds Active Scripts Losartan Potassium (Losartan Potassium) 50 Mg Tab, 50 MG PO DAILY for 30 Days, #30 TAB 2 Refills Prov:WILLEM MURDOCK RESIDENT 02/17/25 Amlodipine Besylate (NORVASC TABLET) 5 Mg Tb, 10 MG PO DAILY for 30 Days, #60 TAB 2 Refills Prov:WILLEM MURDOCK RESIDENT 02/17/25 Current Medications Current Medications Medications (Trade) Dose Ordered Sig/Johanny Route PRN Reason Start Time Stop Time Status Last Admin Alprazolam (Xanax Tablet) 0.25 mg BIDPRN PO 05/12/25 16:45 05/12/25 16:52 DC Alprazolam (Xanax Tablet) 0.25 mg BIDPRN PRN PO ANXIETY 05/12/25 17:00 05/12/25 17:34 Review of Systems Constitutional: no fever, chill, weight loss HEENT: no eye pain, no hearing loss, no oral lesion, no scleral icterus Heart: POS chest pain, POS chest pressure Lung: no cough, no dyspnea with exertion Abdomen: NO PAIN ,CONSTIPATION OR DIARRHEA : no pain with urination, normal appearing urine Musculoskeletal: no joint pain, no muscle pain Neurological: no seizure, no loss of sensation, no weakness in extremities Pysch: no depression, no anxiety Derm: no rash, no jaundice Vital Signs Vital Signs Date Time Temp Pulse Resp B/P (MAP) Pulse Ox O2 Delivery O2 Flow Rate FiO2 05/13/25 05:00 98.6 81 18 94 98.6 05/13/25 00:36 117/85 (96) 05/12/25 20:00 Room Air* 0 21 Physical Exam SKIN: [NL] HEENT: [NL] NECK: [NL] CARDIAC: [RRR] PULMONARY: [CTA] ABDOMEN: [SOFT,NT] BREASTS -LEFT IMPLANT ABSENT,R IMPLANT IN PLACE ,NO MASSES PELVIC-DEFERRED BY PT REQUEST Labs/Diagnostic Data Labs Test 05/12/25 05:46 05/11/25 10:53 05/10/25 10:42 05/09/25 17:00 Range/Units White Blood Count 4.9 4.4-10.8 10^3/uL Red Blood Count 4.39 4.0-5.20 10^6/uL Hemoglobin 13.8 12.2-16.2 g/dL Hematocrit 40.0 36.0-46.0 % Mean Corpuscular Volume 91.0 80.0-100.0 fL Mean Corpuscular Hemoglobin 31.3 28.0-32.0 pg Mean Corpuscular Hemoglobin Concent 34.4 32.0-36.0 g/dL Red Cell Distribution Width 12.4 11.8-14.3 % Platelet Count 357 140-450 10^3/uL Mean Platelet Volume 7.0 6.9-10.8 fL Neutrophils (%) (Auto) 47.5 37.0-80.0 % Lymphocytes (%) (Auto) 38.6 10.0-50.0 % Monocytes (%) (Auto) 7.9 0.0-12.0 % Eosinophils (%) (Auto) 5.2 0.0-7.0 % Basophils (%) (Auto) 0.8 0.0-2.0 % Neutrophils # (Auto) 2.3 1.6-8.6 10 ^3/uL Lymphocytes # (Auto) 1.9 0.4-5.4 10 ^3/uL Monocytes # (Auto) 0.4 0-1.3 10 ^3/uL Eosinophils # (Auto) 0.3 0-0.8 10 ^3/uL Basophils # (Auto) 0 0-0.2 10 ^3/uL Nucleated Red Blood Cells 0.1 % Sodium Level 139 136-145 mmol/L Potassium Level 4.2 3.5-5.1 mmol/L Chloride Level 106 98-107 mmol/L Carbon Dioxide Level 26 20-31 mmol/L Anion Gap 7 5-15 Blood Urea Nitrogen 12 # 9-23 mg/dL Creatinine 0.84 0.550-1.02 mg/dL Glomerular Filtration Rate Calc 82 >90 mL/min BUN/Creatinine Ratio 14.3 10.0-20.0 Serum Glucose 85 74-106 mg/dL Calcium Level 9.5 8.7-10.4 mg/dL Total Bilirubin 0.5 0.2-1.0 mg/dL Aspartate Amino Transferase (AST) 18 13-40 U/L Alanine Aminotransferase (ALT) 15 7-40 U/L Alkaline Phosphatase 86 46-116 U/L Total Protein 7.1 5.7-8.2 g/dL Albumin 4.2 3.2-4.8 g/dL Urine Color Light-yellow Yellow Urine Clarity Clear Clear Urine pH 5.5 5.0-9.0 Urine Specific [place] 1.018 1.001-1.035 Urine Protein Negative Negative Urine Ketones Negative Negative Urine Blood Trace H Negative /uL Urine Nitrite Negative Negative Urine Bilirubin Negative Negative Urine Urobilinogen Normal Negative mg/dL Urine Leukocyte Esterase Negative Negative /uL Urine RBC 2 0 - 4 /hpf Urine Microscopic WBC 1 0-5 /HPF Urine Squamous Epithelial Cells Few <5 /hpf Urine Bacteria Few H None Seen /hpf Urine Glucose Normal Normal mg/dL Troponin I High Sensitivity 5 </=34 ng/L Microbiology Date/Time Source Procedure Growth Status 05/10/25 02:10 Nose MRSA Screen - Final Complete Primary Diagnosis HYPERTENSIVE CRISIS RESOLVED CERVICAL MASS SCHED BY TRACK SUBWAY REPAIR SUPERVISOR FOR BIOPSY ON 06-03 POSTMENOPAUSAL BLEEDING-SCHED BY TRACK SUBWAY REPAIR SUPERVISOR FOR BX HX OF BREAST CANCER Plan EMPHASIZED IMPORTANCE OF FOLLOWUP WITH TRACK SUBWAY REPAIR SUPERVISOR SCHED WILL SIGN OFF THANK YOU Plan discussed with: Patient Visit Coding OBGYN Date of Service: May 13, 2025 Billing Provider: EDD RAMIREZ DO LUBE TECHNICIAN Common Visit Codes: [id number] OBS CARE (HIGH) LUBE TECHNICIAN Consultation Codes: [id number] CONSULT <110MIN EDD RAMIREZ DO May 13, 2025 09:28
--- NOTE | 2025-05-13 15:56 | DVHPN2 ---
Subjective Patient was seen and evaluated by me complaining of abdominal tightness and some discomfort. Reviewed: H&P Changes from previous H/P or p: No Changes General: Per HPI Objective Vitals Vital Signs Date Time Temp Pulse Resp B/P (MAP) Pulse Ox O2 Delivery O2 Flow Rate FiO2 05/13/25 09:26 97.8 85 16 123/81 (95) 96 97.8 05/13/25 08:17 Room Air* 0 21 Intake/Output Intake and Output 05/13/25 07:00 Intake Total 650 ml Balance 650 ml Intake Oral 400 ml IV Total 250 ml # Voids 4 Exam HEENT pupils are reactive Neck is supple CV is S1-S2 regular rate and rhythm Respiratory diminished breath sounds bases GI positive bowel sounds soft nondistended nontender no guarding no rigidity Extremity no edema TAP DANCER no motor deficit. Medications Current Medications Medications Dose Ordered Sig/Johanny Route Start Time Stop Time Status Last Admin Dose Admin Amlodipine Besylate 10 mg DAILY PO 05/10/25 10:00 05/13/25 09:24 10 MG Hydrochlorothiazide 25 mg DAILY PO 05/10/25 10:00 05/13/25 09:25 25 MG Losartan Potassium 100 mg DAILY PO 05/10/25 10:00 05/13/25 09:26 100 MG Temazepam 15 mg QHSP PRN PO 05/09/25 20:00 05/11/25 23:11 15 MG Ondansetron HCl 4 mg Q4HP PRN IV 05/09/25 20:00 05/10/25 15:15 4 MG Acetaminophen 650 mg Q6HP PRN PO 05/09/25 20:00 05/12/25 15:36 650 MG Nitroglycerin 0.4 mg Q5MINP PRN SL 05/09/25 20:00 Morphine Sulfate 2 mg Q30M PRN IV 05/09/25 20:00 Labetalol HCl 10 mg Q4HPRN PRN IV 05/10/25 14:45 Ceftriaxone Sodium 50 ml @ 100 mls/hr DAILY@09 IV 05/11/25 09:45 05/13/25 09:26 100 MLS/HR Metronidazole 100 ml @ 100 mls/hr Q8HR IV 05/11/25 14:00 05/13/25 13:37 100 MLS/HR Cyclobenzaprine HCl 10 mg HS PO 05/11/25 22:00 05/12/25 21:23 10 MG Acetaminophen/ Hydrocodone Bitart 1 tab Q4HPRN PRN PO 05/11/25 10:45 05/13/25 13:53 1 TAB Alprazolam 0.25 mg BIDPRN PRN PO 05/12/25 17:00 05/13/25 13:53 0.25 MG Laboratory Results Laboratory Tests 05/11/25 10:53 05/12/25 05:46 Urinalysis Test 05/10/25 10:42 Urine Color Light-yellow (Yellow) Urine Clarity Clear (Clear) Urine pH 5.5 (5.0-9.0) Urine Specific [place] 1.018 (1.001-1.035) Urine Protein Negative (Negative) Urine Ketones Negative (Negative) Urine Blood Trace /uL (Negative) H Urine Nitrite Negative (Negative) Urine Bilirubin Negative (Negative) Urine Urobilinogen Normal mg/dL (Negative) Urine Leukocyte Esterase Negative /uL (Negative) Urine RBC 2 /hpf (0 - 4) Urine Microscopic WBC 1 /HPF (0-5) Urine Squamous Epithelial Cells Few /hpf (<5) Urine Bacteria Few /hpf (None Seen) H Urine Glucose Normal mg/dL (Normal) Microbiology Microbiology Date/Time Source Procedure Growth Status 05/10/25 02:10 Nose MRSA Screen - Final Complete Assessment/Plan Assessment/Plan 54-year-old female with a known history of breast cancer status post tamoxifen therapy in the past, hypertension who initially presented to the hospital with a uncontrolled blood pressure and reported frontal headache found to have 1. Hypertensive urgency 2. Acute kidney injury suspected secondary to vasomotor nephropathy currently resolved 3. Nausea and vomiting suspected gastroenteritis currently resolved 4. Breast cancer status post bilateral mastectomy with a constructive surgery, status post hormonal therapy with the tamoxifen for one year 4. Cervical lesion with a recent history of Pap smear as an outpatient with Dr. Upton, Surgical Orderly consultation 5. Anxiety disorder -continue t Xanax 0.25 mg p.o. twice a day p.r.n. anxiety, increase the dose if it is not working, Gyne consultation for cervical lesion appreciated, Plan of care discussed with the patient who understand verbalized the understanding and agreeable to plan. Plan discussed with: Patient My Orders Orders - HALEIGH BUTT MD Procedure Category Date Status Time Alprazolam Tablet PHA 05/12/25 In Process (Xanax Tablet) 17:00 Date of Service: May 13, 2025 Billing Provider: HALEIGH BUTT MD Common Visit Codes: [id number] INP/OBS CARE(MOD) HALEIGH BUTT MD May 13, 2025 15:56
[2025-05-13] MEDS: LACTULOSE 20Gm/30ML SOLN PO ONE (16:18)
[2025-05-14] VITALS (8 sets, daily range): BP systolic 134–216; BP diastolic 82–110; PULSE 60–109; RESP 16–20; TEMP 98–98.6; O2SAT 94–97
[2025-05-14] MEDS: LABETALOL HCL 20 MG/4 ML VL IV PRN (12:26)
--- NOTE | 2025-05-14 16:37 | DVHPN2 ---
Subjective Patient was seen and evaluated by me complaining of abdominal tightness and some discomfort. 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 Medications Current Medications Medications Dose Ordered Sig/Johanny Route Start Time Stop Time Status Last Admin Dose Admin Amlodipine Besylate 10 mg DAILY PO 05/10/25 10:00 05/14/25 09:10 10 MG Hydrochlorothiazide 25 mg DAILY PO 05/10/25 10:00 05/14/25 09:09 25 MG Losartan Potassium 100 mg DAILY PO 05/10/25 10:00 05/14/25 09:10 100 MG Temazepam 15 mg QHSP PRN PO 05/09/25 20:00 05/14/25 00:09 15 MG Ondansetron HCl 4 mg Q4HP PRN IV 05/09/25 20:00 05/10/25 15:15 4 MG Acetaminophen 650 mg Q6HP PRN PO 05/09/25 20:00 05/13/25 17:16 650 MG Nitroglycerin 0.4 mg Q5MINP PRN SL 05/09/25 20:00 Morphine Sulfate 2 mg Q30M PRN IV 05/09/25 20:00 Labetalol HCl 10 mg Q4HPRN PRN IV 05/10/25 14:45 05/14/25 12:26 10 MG Ceftriaxone Sodium 50 ml @ 100 mls/hr DAILY@09 IV 05/11/25 09:45 05/14/25 09:10 100 MLS/HR Metronidazole 100 ml @ 100 mls/hr Q8HR IV 05/11/25 14:00 05/14/25 15:12 100 MLS/HR Cyclobenzaprine HCl 10 mg HS PO 05/11/25 22:00 05/13/25 21:12 10 MG Acetaminophen/ Hydrocodone Bitart 1 tab Q4HPRN PRN PO 05/11/25 10:45 05/14/25 11:02 1 TAB Alprazolam 0.25 mg BIDPRN PRN PO 05/12/25 17:00 05/14/25 09:08 0.25 MG Laboratory Results Laboratory Tests 05/11/25 10:53 05/12/25 05:46 Urinalysis Test 05/10/25 10:42 Urine Color Light-yellow (Yellow) Urine Clarity Clear (Clear) Urine pH 5.5 (5.0-9.0) Urine Specific [place] 1.018 (1.001-1.035) Urine Protein Negative (Negative) Urine Ketones Negative (Negative) Urine Blood Trace /uL (Negative) H Urine Nitrite Negative (Negative) Urine Bilirubin Negative (Negative) Urine Urobilinogen Normal mg/dL (Negative) Urine Leukocyte Esterase Negative /uL (Negative) Urine RBC 2 /hpf (0 - 4) Urine Microscopic WBC 1 /HPF (0-5) Urine Squamous Epithelial Cells Few /hpf (<5) Urine Bacteria Few /hpf (None Seen) H Urine Glucose Normal mg/dL (Normal) Microbiology Microbiology Date/Time Source Procedure Growth Status 05/10/25 02:10 Nose MRSA Screen - Final Complete Assessment/Plan Assessment/Plan 54-year-old female with a known history of breast cancer status post tamoxifen therapy in the past, hypertension who initially presented to the hospital with a uncontrolled blood pressure and reported frontal headache found to have 1. Hypertensive urgency, improving 2. Acute kidney injury suspected secondary to vasomotor nephropathy currently resolved 3. Nausea and vomiting suspected gastroenteritis currently resolved 4. Breast cancer status post bilateral mastectomy with a constructive surgery, status post hormonal therapy with the tamoxifen for one year 4. Cervical lesion with a recent history of Pap smear as an outpatient with Dr. Upton, Industrial Chemist consultation 5. Anxiety disorder -continue t Xanax 0.25 mg p.o. twice a day p.r.n. anxiety, increase the dose if it is not working, Gyne consultation for cervical lesion appreciated, Plan of care discussed with the patient who understand verbalized the understanding and agreeable to plan. Plan discussed with: Patient My Orders Orders - HALEIGH BUTT MD Procedure Category Date Status Time * Aircraft Seat Upholsterer CONS 05/13/25 Transmitted Consult Electrocardigram EKG 05/14/25 Logged 12:35 Pt Request For Service PT 05/14/25 Logged 15:10 Date of Service: May 14, 2025 Billing Provider: HALEIGH BUTT MD Common Visit Codes: [id number] INP/OBS CARE(HIGH) HALEIGH BUTT MD May 14, 2025 16:37
[2025-05-14] MEDS: FLEET ENEMA(ADULT) 135 ML PR ONE (16:47)
--- NOTE | 2025-05-14 16:57 | DVHINCON2 ---
Date of Service if different f: May 14, 2025 Time of Service: 16:57 Consultation ([facility]) Consulting Physician: EDD RAMIREZ DO Labs Laboratory Tests Test 05/09/25 17:00 05/10/25 10:42 05/11/25 10:53 05/12/25 05:46 Troponin I High Sensitivity 5 ng/L (</=34) Urine Color Light-yellow (Yellow) Urine Clarity Clear (Clear) Urine pH 5.5 (5.0-9.0) Urine Specific [place] 1.018 (1.001-1.035) Urine Protein Negative (Negative) Urine Ketones Negative (Negative) Urine Blood Trace /uL (Negative) Urine Nitrite Negative (Negative) Urine Bilirubin Negative (Negative) Urine Urobilinogen Normal mg/dL (Negative) Urine Leukocyte Esterase Negative /uL (Negative) Urine RBC 2 /hpf (0 - 4) Urine Microscopic WBC 1 /HPF (0-5) Urine Squamous Epithelial Cells Few /hpf (<5) Urine Bacteria Few /hpf (None Seen) Urine Glucose Normal mg/dL (Normal) Sodium Level 139 mmol/L (136-145) Potassium Level 4.2 mmol/L (3.5-5.1) Chloride Level 106 mmol/L (98-107) Carbon Dioxide Level 26 mmol/L (20-31) Anion Gap 7 (5-15) Blood Urea Nitrogen 12 mg/dL (9-23) Creatinine 0.84 mg/dL (0.550-1.02) Glomerular Filtration Rate Calc 82 mL/min (>90) BUN/Creatinine Ratio 14.3 (10.0-20.0) Serum Glucose 85 mg/dL (74-106) Calcium Level 9.5 mg/dL (8.7-10.4) Total Bilirubin 0.5 mg/dL (0.2-1.0) Aspartate Amino Transf (AST/SGOT) 18 U/L (13-40) Alanine Aminotransferase (ALT/SGPT) 15 U/L (7-40) Alkaline Phosphatase 86 U/L (46-116) Total Protein 7.1 g/dL (5.7-8.2) Albumin 4.2 g/dL (3.2-4.8) White Blood Count 4.9 10^3/uL (4.4-10.8) Red Blood Count 4.39 10^6/uL (4.0-5.20) Hemoglobin 13.8 g/dL (12.2-16.2) Hematocrit 40.0 % (36.0-46.0) Mean Corpuscular Volume 91.0 fL (80.0-100.0) Mean Corpuscular Hemoglobin 31.3 pg (28.0-32.0) Mean Corpuscular Hemoglobin Concent 34.4 g/dL (32.0-36.0) Red Cell Distribution Width 12.4 % (11.8-14.3) Platelet Count 357 10^3/uL (140-450) Mean Platelet Volume 7.0 fL (6.9-10.8) Neutrophils (%) (Auto) 47.5 % (37.0-80.0) Lymphocytes (%) (Auto) 38.6 % (10.0-50.0) Monocytes (%) (Auto) 7.9 % (0.0-12.0) Eosinophils (%) (Auto) 5.2 % (0.0-7.0) Basophils (%) (Auto) 0.8 % (0.0-2.0) Neutrophils # (Auto) 2.3 10 ^3/uL (1.6-8.6) Lymphocytes # (Auto) 1.9 10 ^3/uL (0.4-5.4) Monocytes # (Auto) 0.4 10 ^3/uL (0-1.3) Eosinophils # (Auto) 0.3 10 ^3/uL (0-0.8) Basophils # (Auto) 0 10 ^3/uL (0-0.2) Nucleated Red Blood Cells 0.1 % Microbiology Date/Time Source Procedure Growth Status 05/10/25 02:10 Nose MRSA Screen - Final Complete Vitals Vital Signs Date Time Temp Pulse Resp B/P (MAP) Pulse Ox O2 Delivery O2 Flow Rate FiO2 05/14/25 13:26 84 177/93 05/14/25 12:55 98.6 17 96 98.6 05/14/25 07:45 Room Air* 0 21 Current medications Current Medications Medications Dose Ordered Sig/Johanny Route Start Time Stop Time Status Last Admin Dose Admin Amlodipine Besylate 10 mg DAILY PO 05/10/25 10:00 05/14/25 09:10 10 MG Hydrochlorothiazide 25 mg DAILY PO 05/10/25 10:00 05/14/25 09:09 25 MG Losartan Potassium 100 mg DAILY PO 05/10/25 10:00 05/14/25 09:10 100 MG Temazepam 15 mg QHSP PRN PO 05/09/25 20:00 05/14/25 00:09 15 MG Ondansetron HCl 4 mg Q4HP PRN IV 05/09/25 20:00 05/10/25 15:15 4 MG Acetaminophen 650 mg Q6HP PRN PO 05/09/25 20:00 05/13/25 17:16 650 MG Nitroglycerin 0.4 mg Q5MINP PRN SL 05/09/25 20:00 Morphine Sulfate 2 mg Q30M PRN IV 05/09/25 20:00 Labetalol HCl 10 mg Q4HPRN PRN IV 05/10/25 14:45 05/14/25 12:26 10 MG Ceftriaxone Sodium 50 ml @ 100 mls/hr DAILY@09 IV 05/11/25 09:45 05/14/25 09:10 100 MLS/HR Metronidazole 100 ml @ 100 mls/hr Q8HR IV 05/11/25 14:00 05/14/25 15:12 100 MLS/HR Cyclobenzaprine HCl 10 mg HS PO 05/11/25 22:00 05/13/25 21:12 10 MG Acetaminophen/ Hydrocodone Bitart 1 tab Q4HPRN PRN PO 05/11/25 10:45 05/14/25 16:53 1 TAB Alprazolam 0.25 mg BIDPRN PRN PO 05/12/25 17:00 05/14/25 09:08 0.25 MG PSYCHIATRY CONSULTATION INITIAL EVALUATION REASON FOR CONSULT: Severe anxiety HPI: 54yo hospitalized after coming in for hypertensive emergency. Care is ongoing. On evaluation, pt is able to provide her name, date, location and reason for presenting. Says her BP was elevated, her BP high, abdominal pain, leg pain, n/v. Pt also c/o anxiety ongoing 6 months, has been worse since being in the hospital. She says her hospital stay has lacked professionalism. Says people keep asking her for her arm, to tourniquet her arm. Pt also says she is no better than when she came in. She feels anxious, on edge. Feels she cannot rest or sleep, or a mistake will be made. Pt has spoken to her family, and feels she wants to transfer to a different hospital or leave and present to another hospital. PSYCHIATRIC HISTORY: DIAGNOSIS: History of anxiety, anxiety. ADMISSIONS: No prior admissions. MEDICATION TRIALS: No current meds as an outpatient. Has trialed Zoloft in the past. OUTPATIENT CARE: None prior. THERAPY: None prior. SI/SELF-INJURY/SUICIDE ATTEMPT: None prior. No access to firearms. SUBSTANCE USE: Smokes cannabis a few times a day. Denies alcohol. Smokes cigs a day. RELEVANT MEDICAL HISTORY: HTN Breast Cancer s/p double mastectomy 2019 (still need additional surgery) Hernia s/p repair 2007 Lesion on her cervix, requires biopsy SOCIAL HISTORY: Has not worked since 2019. One daughter 20yo, in [place], last spoke to her today. Says she keeps her fighting. ALLERGIES: None MENTAL STATUS EXAMINATION: The patient is a 54-year-old woman who appears her stated age, dressed appropriately in hospital attire, with fair grooming and hygiene. She is cooperative and engaged throughout the interview. Eye contact is good. Psychomotor activity is within normal limits. Speech is normal in rate, rhythm, and volume. Mood is described as anxious, and affect is congruent, moderately tense but appropriate to context. Thought process is linear, logical, and goal- directed. Thought content is notable for concerns regarding her medical care and safety in the hospital, which appear reality-based and understandable given her ongoing medical issues and prior surgical history. No evidence of paranoia, delusions, or hallucinations is observed. She denies suicidal or homicidal ideation. Insight and judgment are intact. Cognition is grossly intact; she is fully oriented to person, place, time, and situation. DIFFERENTIAL DIAGNOSIS: Adjustment Disorder with Anxiety Generalized Anxiety Disorder Anxiety Disorder due to Medical Condition Normal Psychological Reaction to Medical Stressors ASSESSMENT: This is a 54-year-old woman with a history of hypertension and multiple medical conditions (including breast cancer and prior surgeries), who presents with anxiety that has worsened during her current hospitalization. Her anxiety appears related to ongoing health stressors, concerns about the quality and safety of her medical care, and fear of potential procedural errors. On examination, she is logical, oriented, and demonstrates intact reality testing without evidence of psychosis, yunier, or cognitive impairment. Her concerns appear valid and grounded in her current medical experiences. She expresses a desire to transfer to another hospital if her care concerns remain unresolved, which represents a rational and autonomous decision rather than psychiatric disorganization. At this time, there is no indication for involuntary psychiatric hold or acute inpatient psychiatric treatment. The patient demonstrates capacity to make her own medical decisions and should continue to participate actively in her care discussions. RECOMMENDATIONS: 1. Legal: No criteria met for involuntary hold (5150). Patient retains medical decision-making capacity. 2. Disposition: No indication for inpatient psychiatric admission. Recommend continued management by the primary medical team with psychiatry available PRN. 3. Medications: If anxiety persists, may consider a short-term anxiolytic (can continue PRN benzodiazepine, low dose). Patient is amenable to restarting SSRI Zoloft. If started, can initiate at 25 mg po daily. 4. Medical Considerations: Address patients concerns regarding care quality and use of her upper extremities. Support patients right to request transfer if she feels more comfortable receiving care elsewhere. 5. Other: Provide reassurance and psychoeducation regarding anxiety and medical stress. Offer supportive listening and normalize distress related to hospitalization. Recommend outpatient follow-up for anxiety management after discharge. CARLEE RAMOS MD May 14, 2025 16:57
--- NOTE | 2025-05-17 09:49 | ECG ---
[facility] Test Date: 2025-05-14 Test Time: 12:20:51 Pat Name: LATOYA CHANEY Department: Respiratoy Room: [facility]2T B Gender: F Asw Specialist: LESLEY : 1970 Requested By: HALEIGH BUTT Order Number: [id number] Reading MD: Julio Thornton Measurements Intervals Clements Rate: 110 P: 66 NM: 180 QRS: 49 QRSD: 85 T: 14 QT: 330 QTc: 447 Interpretive Statements Sinus tachycardia Anterior infarct, old Electronically Signed On 05-19-2025 19:38:09 PDT by Julio Thornton Please click the below link to view image of tracing.
--- NOTE | 2025-05-24 16:43 | DVHDS2 ---
Discharge Summary Date of Admission May 09, 2025 at 19:48 Date of Discharge: May 14, 2025 Labs/Diagnostic Data: Laboratory Results Test 05/12/25 05:46 05/11/25 10:53 05/10/25 10:42 05/09/25 17:00 White Blood Count 4.9 10^3/uL (4.4-10.8) Red Blood Count 4.39 10^6/uL (4.0-5.20) Hemoglobin 13.8 g/dL (12.2-16.2) Hematocrit 40.0 % (36.0-46.0) Mean Corpuscular Volume 91.0 fL (80.0-100.0) Mean Corpuscular Hemoglobin 31.3 pg (28.0-32.0) Mean Corpuscular Hemoglobin Concent 34.4 g/dL (32.0-36.0) Red Cell Distribution Width 12.4 % (11.8-14.3) Platelet Count 357 10^3/uL (140-450) Mean Platelet Volume 7.0 fL (6.9-10.8) Neutrophils (%) (Auto) 47.5 % (37.0-80.0) Lymphocytes (%) (Auto) 38.6 % (10.0-50.0) Monocytes (%) (Auto) 7.9 % (0.0-12.0) Eosinophils (%) (Auto) 5.2 % (0.0-7.0) Basophils (%) (Auto) 0.8 % (0.0-2.0) Neutrophils # (Auto) 2.3 10 ^3/uL (1.6-8.6) Lymphocytes # (Auto) 1.9 10 ^3/uL (0.4-5.4) Monocytes # (Auto) 0.4 10 ^3/uL (0-1.3) Eosinophils # (Auto) 0.3 10 ^3/uL (0-0.8) Basophils # (Auto) 0 10 ^3/uL (0-0.2) Nucleated Red Blood Cells 0.1 % Sodium Level 139 mmol/L (136-145) Potassium Level 4.2 mmol/L (3.5-5.1) Chloride Level 106 mmol/L (98-107) Carbon Dioxide Level 26 mmol/L (20-31) Anion Gap 7 (5-15) Blood Urea Nitrogen 12 mg/dL (9-23) Creatinine 0.84 mg/dL (0.550-1.02) Glomerular Filtration Rate Calc 82 mL/min (>90) BUN/Creatinine Ratio 14.3 (10.0-20.0) Serum Glucose 85 mg/dL (74-106) Calcium Level 9.5 mg/dL (8.7-10.4) Total Bilirubin 0.5 mg/dL (0.2-1.0) Aspartate Amino Transferase (AST) 18 U/L (13-40) Alanine Aminotransferase (ALT) 15 U/L (7-40) Alkaline Phosphatase 86 U/L (46-116) Total Protein 7.1 g/dL (5.7-8.2) Albumin 4.2 g/dL (3.2-4.8) Urine Color Light-yellow (Yellow) Urine Clarity Clear (Clear) Urine pH 5.5 (5.0-9.0) Urine Specific [place] 1.018 (1.001-1.035) Urine Protein Negative (Negative) Urine Ketones Negative (Negative) Urine Blood Trace /uL (Negative) Urine Nitrite Negative (Negative) Urine Bilirubin Negative (Negative) Urine Urobilinogen Normal mg/dL (Negative) Urine Leukocyte Esterase Negative /uL (Negative) Urine RBC 2 /hpf (0 - 4) Urine Microscopic WBC 1 /HPF (0-5) Urine Squamous Epithelial Cells Few /hpf (<5) Urine Bacteria Few /hpf (None Seen) Urine Glucose Normal mg/dL (Normal) Troponin I High Sensitivity 5 ng/L (</=34) Other Laboratory Tests 05/12/25 05:46 05/11/25 10:53 Brief Hx & Hospital Course: 54-year-old female with a known history of breast cancer status post tamoxifen therapy in the past, hypertension who initially presented to the hospital with a uncontrolled blood pressure and reported frontal headache found to have hypertensive urgency. Patient also developed acute kidney injury suspected secondary to vasomotor nephropathy. Patient's nausea and vomiting was suspected secondary to gastroenteritis which was resolved. Patient does have known history of breast cancer status post bilateral mastectomy with a constructive surgery. Patient has had a cervical lesion with a recent history of Pap smear as an outpatient with Peter Amato. Patient left against medical advice before completion of workup and treatment. Condition at Discharge: Undetermined Final Diagnosis/Problems List 54-year-old female with a known history of breast cancer status post tamoxifen therapy in the past, hypertension who initially presented to the hospital with a uncontrolled blood pressure and reported frontal headache found to have 1. Hypertensive urgency 2. Acute kidney injury suspected secondary to vasomotor nephropathy currently resolved 3. Nausea and vomiting suspected gastroenteritis currently resolved 4. Breast cancer status post bilateral mastectomy with a constructive surgery, status post hormonal therapy with the tamoxifen for one year 4. Cervical lesion with a recent history of Pap smear as an outpatient with Dr. Upton, [employer] consultation 5. Anxiety disorder Patient left against medical advice Discharge Disposition: [facility] Discharge Will this Physician continue t: No Discharge Instruct/Medications Scheduled Amlodipine Besylate (Norvasc Tablet), 10 MG PO DAILY Losartan Potassium (Losartan Potassium), 50 MG PO DAILY Discharge Statement: "Patient was advised to return to the ER or call 911 if any headaches, dizziness, shortness of breath, chest pain, abdominal pain, bleeding, fevers, or worsening of medical condition. Patient was counseled about treatment plan, medications, possible side effects, patientverbalized understanding. All questions were answered to the best of my ability. This discharge took greater then 30 minutes in planning, reviewing documentation, counseling the patient, and discussing with other team members." ASSESSMENT ASSESSMENT Assessment Date of Service: May 14, 2025 Billing Provider: HALEIGH BUTT MD Common Visit Codes: 69964-LWT/OBS DISCH DAY >30min HALEIGH BUTT MD May 24, 2025 16:43
== END 2025-05-14 17:31 | disposition left against medical advice (07) | DRG 248 ==
LOC: ER 15:31 → OVERFLOW 19:48 → TELE-WESTW 23:43
PROVIDERS: ADMIT Internal Medicine; ATTEND Internal Medicine
DX: A04.9 Bacterial intestinal infection, unspecified (principal); N17.0 Acute kidney failure with tubular necrosis; I16.1 Hypertensive emergency; F41.9 Anxiety disorder, unspecified; I10 Essential (primary) hypertension; F17.210 Nicotine dependence, cigarettes, uncomplicated; Z90.13 Acquired absence of bilateral breasts and nipples; Z83.3 Family history of diabetes mellitus; Z82.49 Family history of ischemic heart disease and other diseases of the circulatory system; Z80.0 Family history of malignant neoplasm of digestive organs; Z80.42 Family history of malignant neoplasm of prostate; Z81.8 Family history of other mental and behavioral disorders; Z85.3 Personal history of malignant neoplasm of breast
CPT/HCPCS: 36415; 71045; 76830; 76856; 80048; 80053; 81001; 84484; 85025; 87081; 93005; 96374; G0378; J2405; J3490